=== PATIENT | male | born 1970 | race Caucasian/White ===

== ENCOUNTER → 2017-07-30 13:32 | Outpatient (REF) | payer MEDICARE, OTHER, SELFPAY ==
[2017-07-30 18:18] LABS: Amphetamine/Metha Screen,Urine Negative ng/mL (<1000); Barbiturates Screen,Urine Negative ng/mL (<200); Benzodiazepines Screen,Urine Negative ng/mL (200); Cannabinoid Screen,Urine Negative ng/mL (<50); Cocaine Screen,Urine Negative ng/g (<300); Methadone Screen,Urine Negative ng/mL (<300); Opiate Screen,Urine Negative ng/mL (<300); Phencyclidine Screen,Urine Negative ng/mL (<25)
== END ==
LOC: LAB 13:32
PROVIDERS: Visit Provider Physician Assistant
DX: Z79.899 Other long term (current) drug therapy (principal)
CPT/HCPCS: 80305

== ENCOUNTER → 2018-06-02 13:50 | Outpatient (CLI) | payer MEDICARE, OTHER, SELFPAY ==
[2018-06-02 14:22] LABS: Basophils % 0.8 % (0.1-2.0); Eosinophils # 0.1 K/mm3 (0.0-0.4); Eosinophils % 2.6 % (0.1-12.0); Hematocrit 41.9 % (42.0-52.0); Hemoglobin 14.5 g/dL (14.1-18.0); Lymphocytes # 2.2 K/mm3 (0.7-4.5); Lymphocytes % 44.3 % (10-50); Mean Corpuscular HGB Conc 34.5 g/dL (31.8-35.4); Mean Corpuscular Hemoglobin 30.8 pg (27.0-31.2); Mean Corpuscular Volume 89.3 fl (80-94); Mean Platelet Volume 7.2 fl (7.4-10.4); Monocytes # 0.3 K/mm3 (0.1-1.0); Monocytes % 5.7 % (1.7-9.3); Neutrophils # 2.3 K/mm3 (1.8-7.8); Neutrophils % 46.6 % (37.0-80.0); Platelet Count 256 K/mm3 (142-424); Red Blood Count 4.69 M/mm3 (4.60-6.20); Red Cell Distribution Width 14.1 % (11.5-17.5); White Blood Count 4.9 K/mm3 (4.8-10.8)
[2018-06-02 15:58] LABS: Alanine Aminotransferase 47 U/L (12-78); Albumin Level 3.5 gm/dL (3.4-5.0); Albumin/Globulin Ratio 1.3 (1.1-1.8); Anion Gap 12.9 mEq/L (5-15); Aspartate Amino Transferase 23 U/L (15-37); Bilirubin,Total 0.3 mg/dL (0.2-1.0); Blood Urea Nitrogen 13 mg/dL (7-18); Calcium 8.6 mg/dL (8.5-10.1); Carbon Dioxide 26 mmol/L (21.0-32.0); Chloride 106 mmol/L (98-107); Estimated Glomerular Filt Rate 72 ml/min (>60); GFR (African American) 87 ML/MIN (>60); Globulin 2.8 gm/dl (1.3-3.2); Glucose 119 mg/dL (74-106); Potassium 3.9 mmoL/L (3.5-5.1); Sodium 141 mmol/L (136-145); Total Protein,Serum 6.3 gm/dL (6.4-8.2); Triglycerides 263 mg/dL (30-200)
[2018-06-02 15:59] LABS: Alkaline Phosphatase 84 U/L (46-116); Chol/HDL Ratio 7.3 (1-3.5); Cholesterol 183 mg/dL (140-200); HDL Cholesterol 25 mg/dL (27-67); LDL Cholesterol 105 mg/dL (0-130); T4 (Thyroxine) 7.1 ug/dl (4.7-13.3); Thyroid Stimulating Hormone 5.59 uIU/ml (0.358-3.740); VLDL Cholesterol 53 mg/dL (0-40)
[2018-06-04 14:39] LABS: Vitamin D 25 Hydroxy 21.7 ng/mL (30.0-100.0)
== END ==
PROVIDERS: Visit Provider Nurse Practitioner Family
DX: E78.5 Hyperlipidemia, unspecified (principal); I10 Essential (primary) hypertension; F41.9 Anxiety disorder, unspecified
CPT/HCPCS: 80053; 80061; 82652; 84436; 84443; 85025

== ENCOUNTER → 2018-09-01 13:57 | Outpatient (CLI) | payer MEDICARE, OTHER, SELFPAY ==
[2018-09-01 16:20] LABS: Chol/HDL Ratio 6.8 (1-3.5); Cholesterol 162 mg/dL (140-200); HDL Cholesterol 24 mg/dL (27-67); LDL Cholesterol 90 mg/dL (0-130); Thyroid Stimulating Hormone 2.54 uIU/ml (0.358-3.740); Triglycerides 242 mg/dL (30-200); VLDL Cholesterol 48 mg/dL (0-40)
[2018-09-05 06:20] LABS: Thyroid Peroxidase Antibodies 18 IU/mL (0-34); Vitamin D 25 Hydroxy 45.9 ng/mL (30.0-100.0)
== END ==
PROVIDERS: Visit Provider Nurse Practitioner Family
DX: E78.5 Hyperlipidemia, unspecified (principal); E03.9 Hypothyroidism, unspecified; E55.9 Vitamin D deficiency, unspecified; R68.89 Other general symptoms and signs
CPT/HCPCS: 80061; 82652; 84439; 84443; 86376

== ENCOUNTER → 2019-05-19 13:42 | Outpatient (CLI) | payer MEDICARE, OTHER, SELFPAY ==
[2019-05-19 14:30] LABS: Chloride 97 mmol/L (98-107)
[2019-05-19 14:31] LABS: Potassium 3.3 mmoL/L (3.5-5.1); Sodium 140 mmol/L (136-145)
[2019-05-19 14:33] LABS: Alanine Aminotransferase 54 U/L (12-78); Albumin Level 4.1 g/dl (3.5-5.0); Albumin/Globulin Ratio 1.7 (1.1-1.8); Alkaline Phosphatase 85 U/L (38-126); Aspartate Amino Transferase 47 U/L (17-59); Bilirubin,Total 0.6 mg/dl (0.2-1.3); Blood Urea Nitrogen 15 mg/dl (9-20); Estimated Glomerular Filt Rate 65 ml/min (>60); GFR (African American) 78 ML/MIN (>60); Globulin 2.4 g/dL (1.3-3.2); Total Protein,Serum 6.5 g/dl (6.3-8.2)
[2019-05-19 14:34] LABS: Anion Gap 17.3 mEq/L (5-15); Carbon Dioxide 29 mmol/L (22.0-30.0); Chol/HDL Ratio 6.5 (1-3.5); Cholesterol 157 mg/dl (140-200); Glucose 200 mg/dl (74-100); HDL Cholesterol 24 mg/dl (40-60); Triglycerides 266 mg/dl (30-150); VLDL Cholesterol 53 mg/dL (0-40)
[2019-05-19 14:42] LABS: Basophils % 0.6 % (0.1-2.0); Eosinophils # 0.1 K/mm3 (0.0-0.4); Eosinophils % 2.3 % (0.1-12.0); Hematocrit 41.1 % (42.0-52.0); Hemoglobin 14.3 g/dL (14.1-18.0); Lymphocytes # 2.6 K/mm3 (0.7-4.5); Lymphocytes % 51.4 % (10-50); Mean Corpuscular HGB Conc 34.8 g/dL (31.8-35.4); Mean Corpuscular Volume 88.9 fl (80-94); Mean Platelet Volume 7.9 fl (7.4-10.4); Monocytes # 0.4 K/mm3 (0.1-1.0); Monocytes % 7.7 % (1.7-9.3); Neutrophils # 1.9 K/mm3 (1.8-7.8); Platelet Count 290 K/mm3 (142-424); Red Blood Count 4.63 M/mm3 (4.60-6.20); Red Cell Distribution Width 13.7 % (11.5-17.5)
[2019-05-19 14:46] LABS: Direct LDL Cholesterol 110.58 mg/dL (100-129)
[2019-05-19 14:52] LABS: MANUAL DIFFERENTIAL MANUAL DIFFERENTIAL (MANUAL DIFF); T4 (Thyroxine) 8.7 ug/dl (5.53-11.0)
[2019-05-19 15:05] LABS: Thyroid Stimulating Hormone 3.36 uIU/mL (0.465-4.68)
[2019-05-19 19:17] LABS: Eosinophils % 3 % (0-3); Lymphocytes % 57 % (10-50); Monocytes % 7 % (2-9); Neutrophils % 33 % (42-76); Platelet Estimate Normal; RBC Morphology Normal; Total Cells Counted 100
[2019-05-22 09:37] LABS: Vitamin D 25 Hydroxy 22.8 ng/mL (30.0-100.0)
== END ==
PROVIDERS: Visit Provider Nurse Practitioner Family
DX: I10 Essential (primary) hypertension (principal); E03.9 Hypothyroidism, unspecified; E55.9 Vitamin D deficiency, unspecified
CPT/HCPCS: 80053; 80061; 82652; 84436; 84443; 85007; 85025

== ENCOUNTER → 2020-06-24 10:24 | Outpatient (CLI) | payer MEDICARE, OTHER, SELFPAY ==
--- NOTE | 2020-06-24 10:26 | CA_ITS ---
APPROVED REPORT EXAM: Comprehensive 2D, Doppler, and color-flow Echocardiogram [employer] Com[employer] Clerk: Yue Sanders CRT Ht: 5 ft 11 in Wt: 238lbs BSA: 2.27 BP: 138/78 mmHg Indications: Murmur, Hyperlipidemia, Hypertension/HDD 2D Dimensions Aortic Root 2.51 cm LA Volume 34.70 mL LVOT 1.79 cm (M/F) 1.5-2.5 LA Volume Index 15.30 mL/m2 (M/F) 16-34 M-Mode Dimensions RVDd 2.58 cm (0.9-2.6) LA Diam 3.91 cm (1.9-4.0) LVDd 4.87 cm (3.5-5.7) Ao Diam 3.62 cm (2.0-3.7) LVDs 2.69 cm (3.5-5.7) IVSd 1.27 cm (0.6-1.1) PWd 0.95 cm (0.6-1.1) EF (Teich) 75.90% FS 44.80% EDV (Teich) 111.20 mL TAPSE 2.15 (<1.7) ESV (Teich) 26.80 mL LV Diastology E Decel Time 150.00 (160-240 msec) E/A Ratio 0.74 LAT E' 11.00 (<10 cm/sec) LAT A' 13.20 cm/s E/LAT E' Ratio 8.55 (>14) Aortic Valve LVOT Max 169.00 (70-110 cm/s) LVOT VTI 30.49 cm AoV Peak Toni. 233.00 (50-130 cm/s) AO Peak GR. 21.70 mmHg AO Mean GR. 9.20 (<5 mmHg) AO VTI 36.17 (18-25 cm) RICCI (VTI) 2.12 (2.5-4.5 cm2) Mitral Valve MV E Max Toni. 94.00 (40-130 cm/s) MV A Velocity 127.00 (40-130 cm/s) E/A Ratio 0.74 MV Decel. Time 150.00 (160-240 ms) MV PHT 44.00 ms Pulmonary Valve PV Peak Velocity 67.00 (50-150 cm/s) Tricuspid Valve TR P. Velocity 200.00 cm/s RAP Estimate 10.00 mmHg RVSP 25.90 mmHg Left Ventricle Technically difficult study because of the patient factors and poor acoustic windows. Left atrium is mildly enlarged, left ventricle is normal size, mild concentric left ventricular hypertrophy, hyperdynamic left ventricular systolic function, visually estimated ejection fraction over 65% with no regional wall motion abnormality, endocardial surfaces are poorly visualized. Doppler evidence of impaired LV relaxation seen, tissue Doppler is inconclusive. Right Ventricle Right atrium and right ventricle are normal size and contractility. Aortic Valve Aortic valve is minimally thickened and fibrosed, there is no aortic stenosis, there is increased velocities across the aortic valve which is likely secondary to increased cardiac output. Morphologically there is no aortic stenosis or aortic insufficiency. Mitral Valve Mitral valve is grossly normal, there is trace mitral regurgitation. Tricuspid Valve Tricuspid grossly normal, there is trace tricuspid regurgitation, tricuspid regurgitation jet velocity is inadequate for calculation of the right ventricular systolic pressure. Pulmonic Valve Pulmonic valve is poorly visualized. Great Vessels Aortic root is normal size. Pericardium No significant pericardial effusion noted. Conclusion 1. Technically difficult study because of the patient factors and poor acoustic windows. Normal left ventricular size, mild concentric left ventricular hypertrophy, hyperdynamic left ventricular systolic function, visually estimated ejection fraction of over 65% with no regional wall motion abnormality, Doppler evidence of increased cardiac output state seen. 2. Trace mitral and tricuspid regurgitation. 3. No significant pericardial effusion noted. Electronically signed by : Wai Ayala, 06/24/2020 14:35:18
== END ==
PROVIDERS: PCP Emergency Medicine; Visit Provider Nurse Practitioner Family
DX: R01.1 Cardiac murmur, unspecified (principal)
CPT/HCPCS: 93306

== ENCOUNTER 2020-09-29 15:54 | Inpatient (IN) | payer MEDICARE, OTHER, SELFPAY ==
[2020-09-29] VITALS (9 sets, daily range): BP systolic 113–169; BP diastolic 59–92; PULSE 97–131; RESP 18–24; TEMP 37.3–39.3; O2SAT 96–98; BMI 36.0; BMI 36.1; BMI 36.3
--- NOTE | 2020-09-29 16:47 | XR_ITS ---
PROCEDURE INFORMATION: Exam: XR Left Tibia and Fibula Exam date and time: 09/29/2020 4:47 PM Age: 50 years old Clinical indication: Patient HX: Wound on left lower leg x 2 days , swelling to lower leg, no trauma TECHNIQUE: Imaging protocol: XR Left tibia and fibula. Views: 2 views. COMPARISON: No relevant prior studies available. FINDINGS: Bones/joints: No acute fracture or dislocation. Normal bone mineralization. Soft tissues: Moderate generalized soft tissue swelling. IMPRESSION: Soft tissue swelling.
[2020-09-29 16:55] LABS: Basophils # 0.1 K/mm3 (0-0.2); Basophils % 0.6 % (0.1-2.0); Eosinophils # 0.2 K/mm3 (0.0-0.4); Eosinophils % 1.2 % (0.1-12.0); Hematocrit 41.8 % (42.0-52.0); Hemoglobin 15.2 g/dL (14.1-18.0); Lymphocytes # 3.6 K/mm3 (0.7-4.5); Lymphocytes % 27.6 % (10-50); Mean Corpuscular HGB Conc 36.3 g/dL (31.8-35.4); Mean Corpuscular Hemoglobin 31.6 pg (27.0-31.2); Mean Corpuscular Volume 86.9 fl (80-94); Mean Platelet Volume 7.6 fl (7.4-10.4); Monocytes % 7.9 % (1.7-9.3); Neutrophils # 8.3 K/mm3 (1.8-7.8); Neutrophils % 62.7 % (37.0-80.0); Platelet Count 278 K/mm3 (142-424); Red Blood Count 4.81 M/mm3 (4.60-6.20); Red Cell Distribution Width 13.9 % (11.5-17.5); White Blood Count 13.2 K/mm3 (4.8-10.8)
[2020-09-29 16:57] LABS: Coronavirus 19, PCR Not Detected (NotDetected); Influenza A, PCR Not Detected (NotDetected); Influenza B, PCR Not Detected (NotDetected)
[2020-09-29 17:01] LABS: Alanine Aminotransferase 57 U/L (12-78); Albumin Level 4.4 g/dl (3.5-5.0); Albumin/Globulin Ratio 1.4 (1.1-1.8); Alkaline Phosphatase 123 U/L (38-126); Anion Gap 15.3 mEq/L (5-15); Aspartate Amino Transferase 43 U/L (17-59); Bilirubin,Total 0.9 mg/dl (0.2-1.3); Blood Urea Nitrogen 12 mg/dl (9-20); Carbon Dioxide 28 mmol/L (22.0-30.0); Chloride 98 mmol/L (98-107); Creatinine Clearance Estimated 143 mL/min (50-200); Estimated Glomerular Filt Rate 79 ml/min (>60); GFR (African American) 96 ML/MIN (>60); Globulin 3.1 g/dL (1.3-3.2); Glucose 122 mg/dl (74-100); Potassium 3.3 mmoL/L (3.5-5.1); Sodium 138 mmol/L (136-145); Total Protein,Serum 7.5 g/dl (6.3-8.2)
--- NOTE | 2020-09-29 17:03 | HMH.EDSKAF ---
ED Disposition Clinical Impression: Cellulitis Qualifiers: Site of cellulitis: extremity Site of cellulitis of extremity: lower extremity Laterality: left Qualified Code(s): L03.116 - Cellulitis of left lower limb Sepsis Qualifiers: Sepsis type: sepsis due to unspecified organism Sepsis acute organ dysfunction status: without acute organ dysfunction Qualified Code(s): A41.9 - Sepsis, unspecified organism Disposition: Still a Patient Condition on Discharge: Good Instructions: DI for Skin Abscess Referrals: Jose Baptiste APRN [Primary Care Provider] - - Critical Care Critical Care Time: No Attestation: On 09/29/20, the high probability of a clinically significant, sudden or life threatening deterioration of the following system(s) required my full and direct attention, intervention and personal management. The time I documented below is in addition to time spent performing reported procedures but includes the following listed in this critical care notation. Medical Decision Making - Pablo Inquiry Pt receiving controlled substance: No Vital Signs: 09/29/20 16:00 09/29/20 16:41 09/29/20 17:01 Temperature 102.7 F H 102.7 F H Temperature Source Oral Oral Pulse Rate 119 H Pulse Rate [Left Brachial] 127 H 131 H Respiratory Rate 24 22 18 Blood Pressure 124/72 Blood Pressure [Left Arm] 136/76 152/85 H Blood Pressure Mean 89 Blood Pressure Mean [Left Arm] 96 107 Blood Pressure Source [Left Arm] Automatic Cuff Blood Pressure Position [Left Arm] Sitting Sitting 02 Sat by Pulse Oximetry 98 98 97 Oxygen Delivery Method Room Air Room Air - Lab Data Lab Results 09/29/20 16:36: WBC 13.2 H, RBC 4.81, Hgb 15.2, Hct 41.8 L, MCV 86.9, MCH 31.6 H, MCHC 36.3 H, RDW 13.9, Plt Count 278, MPV 7.6, Neut % (Auto) 62.7, Lymph % (Auto) 27.6, [place] % (Auto) 7.9, Eos % (Auto) 1.2, Baso % (Auto) 0.6, Neut # (Auto) 8.3 H, Lymph # (Auto) 3.6, [place] # (Auto) 1.0, Eos # (Auto) 0.2, Baso # (Auto) 0.1 09/29/20 16:36: Sodium 138, Potassium 3.3 L, Chloride 98, Carbon Dioxide 28, Anion Gap 15.3 H, BUN 12, Creatinine 1.00, Estimated Creat Clear 143, Estimated GFR 79, Est GFR ( Amer) 96, Glucose 122 H, Calcium 9.0, Total Bilirubin 0.9, AST 43, ALT 57, Alkaline Phosphatase 123, Total Protein 7.5, Albumin 4.4, Globulin 3.1, Albumin/Globulin Ratio 1.4 09/29/20 16:36: Lactate 1.9 09/29/20 16:36: Procalcitonin 0.083 09/29/20 16:36: Sodium 138, Potassium 3.5, Chloride 100, Carbon Dioxide 27, Anion Gap 14.5, BUN 13, Creatinine 1.00, Estimated Creat Clear 143, Estimated GFR 79, Est GFR ( Amer) 96, Glucose 119 H, Calcium 8.9, Total Bilirubin 1.0, AST 43, ALT 54, Alkaline Phosphatase 125, Total Protein 7.0, Albumin 4.4, Globulin 2.6, Albumin/Globulin Ratio 1.7 09/29/20 16:50: SARS-CoV-2 (PCR) Not detected, Influenza A Untype (PCR) Not detected, Influenza Type B (PCR) Not detected Result diagrams: 09/29/20 16:36 09/29/20 16:36 Orders (Tests/Meds): ED MEDICATIONS Generic Name Dose Route Start Last Admin Trade Name Freq PRN Reason Stop Dose Admin Sodium Chloride 1,000 mls @ 999 mls/hr 09/29/20 17:00 09/29/20 16:57 Sod Chlor 0.9% 1000ml Bag IV 09/29/20 18:00 999 mls/hr .Q1H1M VIKA Administration Sodium Chloride 1,000 mls @ 999 mls/hr 09/29/20 17:15 Sod Chlor 0.9% 1000ml Bag IV 09/29/20 18:15 .Q1H1M VKIA Cefepime HCl 2 gm/ Sodium 100 mls @ 200 mls/hr 09/29/20 17:15 Chloride IV 10/13/20 17:14 Q8H VIKA Protocol Vancomycin HCl 2,250 mg/ 250 mls @ 125 mls/hr 09/29/20 17:06 Sodium Chloride IV 09/29/20 19:05 ONCE ONE Protocol Discontinued Medications Generic Name Dose Route Start Last Admin Trade Name Jadyn PRN Reason Stop Dose Admin Ketorolac Tromethamine 30 mg 09/29/20 16:49 09/29/20 16:57 Ketorolac 30mg/Ml Vial IV 09/29/20 16:50 30 mg ONCE ONE Administration Ondansetron HCl 4 mg 09/29/20 16:48 09/29/20 16:58 Ondansetron 4mg/2ml Vial IV 09/29/20 16:4
[2020-09-29 17:09] LABS: Lactic Acid 1.9 mmol/L (0.7-2.1)
[2020-09-29 17:18] LABS: Alanine Aminotransferase 54 U/L (12-78); Albumin Level 4.4 g/dl (3.5-5.0); Albumin/Globulin Ratio 1.7 (1.1-1.8); Alkaline Phosphatase 125 U/L (38-126); Anion Gap 14.5 mEq/L (5-15); Aspartate Amino Transferase 43 U/L (17-59); Blood Urea Nitrogen 13 mg/dl (9-20); Calcium 8.9 mg/dl (8.4-10.2); Carbon Dioxide 27 mmol/L (22.0-30.0); Chloride 100 mmol/L (98-107); Creatinine Clearance Estimated 143 mL/min (50-200); Estimated Glomerular Filt Rate 79 ml/min (>60); GFR (African American) 96 ML/MIN (>60); Globulin 2.6 g/dL (1.3-3.2); Glucose 119 mg/dl (74-100); Potassium 3.5 mmoL/L (3.5-5.1); Procalcitonin 0.083 ng/mL (0.0-2.0); Sodium 138 mmol/L (136-145)
--- NOTE | 2020-09-29 17:30 | PC.NURSE ---
pt updated on plan of care
--- NOTE | 2020-09-29 17:50 | PC.NURSE ---
Dr Durbin talking to Dr Hudson
--- NOTE | 2020-09-29 17:55 | PC.NURSE ---
pharmacy consult for lorna.dosing
--- NOTE | 2020-09-29 18:10 | PC.NURSE ---
report to audrey daniel
--- NOTE | 2020-09-29 18:52 | PC.NURSE ---
Pt arrived to the floor at this time.
--- NOTE | 2020-09-29 18:54 | PC.NURSE ---
vancomycin drip sent to floor with pt
--- NOTE | 2020-09-29 19:12 | PC.WOUNDNOTE ---
Anterior LT dye
[2020-09-30 04:00] VITALS: BP 96/50; PULSE 89; RESP 18; TEMP 37.2; O2SAT 99
--- NOTE | 2020-09-30 04:10 | PC.NURSE ---
shift summary pt is alert and oriented X4. pts lung sounds are clear with sats maintained 90% or above on room air. there is a dressing on the pts left lower extremity cdi. pt denies any pain, nausea, vomiting, or diarrhea. pt is able to ambulate to restroom unassisted no acute changes will continue to monitor.
[2020-09-30 05:28] VITALS: BMI 36.1
--- NOTE | 2020-09-30 07:15 | HMH.PHAVTE ---
[facility] Pharmacy VTE Monitoring - Patient Demographics Admission date: 09/29/20 Report Date: 09/30/20 Time: 07:15 Allergies/Adverse Reactions: Patient Allergies No Known Allergies Allergy (Verified 06/14/20 11:01) Height: 1.78 m Weight: 114.305 kg Patient Problems: Current Active Problems Cellulitis (Acute) Sepsis (Acute) - VTE Risk Labs: VTE Related Lab Results Hgb 15.2 g/dL (14.1-18.0) 09/29/20 16:36 Hct 41.8 % (42.0-52.0) L 09/29/20 16:36 Plt Count 278 K/mm3 (142-424) 09/29/20 16:36 BUN 12 mg/dl (9-20) 09/29/20 16:36 BUN 13 mg/dl (9-20) 09/29/20 16:36 Creatinine 1.00 mg/dl (0.66-1.25) 09/29/20 16:36 Creatinine 1.00 mg/dl (0.66-1.25) 09/29/20 16:36 Estimated Creat Clear 143 mL/min (50-200) 09/29/20 16:36 Estimated Creat Clear 143 mL/min (50-200) 09/29/20 16:36 Clinical Trial Participant: No - Prophylaxis VTE Prophylaxis Ordered?: Yes Types of VTE Prophylaxis: TEDS Knee High, Pharmacological Pharmacologic Type: Enoxaparin
--- NOTE | 2020-09-30 07:18 | HMH.PHAINT ---
HOME MEDICATION LIST COMPLETED USING LIST FROM [facility]
[2020-09-30 07:39] VITALS: BP 131/71; PULSE 89; RESP 17; TEMP 37.2; O2SAT 98
--- NOTE | 2020-09-30 08:07 | HMH.PHACONS ---
- Pharmacy Consult Date: 09/30/20 Time: 08:07 Referring provider: DR. ZHAO Reason for Consult:: VANCOMYCIN DOSING Allergies and ADEs:: Allergies Allergy/AdvReac Type Severity Reaction Status Date / Time No Known Allergies Allergy Verified 06/14/20 11:01 Home Medications:: Home Medications Medication Instructions Recorded Confirmed Type Atorvastatin Calcium [Lipitor 40mg 40 mg PO DAILY 09/29/20 09/29/20 History Tab] Levothyroxine Sodium 25 mcg PO DAILY 09/29/20 09/29/20 History [Levothyroxine] Triamterene/Hydrochlorothiazid 1 tab PO DAILY 09/29/20 09/29/20 History [Triamterene-Hctz 75-50 mg Tab] Fenofibrate Nanocrystallized 145 mg PO DAILY 09/30/20 09/30/20 History [Fenofibrate] Height: 1.78 m Weight: 114.305 kg Laboratory Results:: Laboratory Results - last 24 hr 09/29/20 16:36: WBC 13.2 H, RBC 4.81, Hgb 15.2, Hct 41.8 L, MCV 86.9, MCH 31.6 H, MCHC 36.3 H, RDW 13.9, Plt Count 278, MPV 7.6, Neut % (Auto) 62.7, Lymph % (Auto) 27.6, [place] % (Auto) 7.9, Eos % (Auto) 1.2, Baso % (Auto) 0.6, Neut # (Auto) 8.3 H, Lymph # (Auto) 3.6, [place] # (Auto) 1.0, Eos # (Auto) 0.2, Baso # (Auto) 0.1 09/29/20 16:36: Sodium 138, Potassium 3.3 L, Chloride 98, Carbon Dioxide 28, Anion Gap 15.3 H, BUN 12, Creatinine 1.00, Estimated Creat Clear 143, Estimated GFR 79, Est GFR ( Amer) 96, Glucose 122 H, Calcium 9.0, Total Bilirubin 0.9, AST 43, ALT 57, Alkaline Phosphatase 123, Total Protein 7.5, Albumin 4.4, Globulin 3.1, Albumin/Globulin Ratio 1.4 09/29/20 16:36: Lactate 1.9 09/29/20 16:36: Procalcitonin 0.083 09/29/20 16:36: Sodium 138, Potassium 3.5, Chloride 100, Carbon Dioxide 27, Anion Gap 14.5, BUN 13, Creatinine 1.00, Estimated Creat Clear 143, Estimated GFR 79, Est GFR ( Amer) 96, Glucose 119 H, Calcium 8.9, Total Bilirubin 1.0, AST 43, ALT 54, Alkaline Phosphatase 125, Total Protein 7.0, Albumin 4.4, Globulin 2.6, Albumin/Globulin Ratio 1.7 09/29/20 16:50: SARS-CoV-2 (PCR) Not detected, Influenza A Untype (PCR) Not detected, Influenza Type B (PCR) Not detected Medical History: Reports:: Anxiety, Heart Murmur, Hyperlipidemia, Hypertension Denies:: Cancer, Diabetes Mellitus Type 1, Diabetes Mellitus Type 2, MRSA Assessment and Plan - Assessment and plan all Dx Assessment and Plan for all problems:: Pharmacokinetic dosing service Objective: Patient: Floor: Age: 50 yo Serum creatinine: 1.00 mg/dL Height: 70.1 Inches Weight (kg): 114 Assessment: IBW (kg): 73.23 Dosing wt(kg): 114 Estimated Creatinine clearance (ml/min): 91.5 CRCL method: Cockcroft and Gault using ibw(default). Drug selected: Vancomycin Loading dose (mg): 0 Vd (liters): 91.2 (factor used: 0.8 L/kg) [place] (hr-1): 0.080 Half life (hrs): 8.66 Recommended dose: 2250 mg Interval: 12 hrs Infusion time (hrs): 2.0 Predicted peak (mcg/mL): 36.9 Predicted trough (mcg/mL): 16.58 Total body weight is being used for vancomycin dosing. Recommendations: Give Vancomycin 2250 mg q 12 hrs with an expected Cpeak of 36.9 mcg/ml and an expected Ctrough of 16.58 mcg/ml Thank you for the consult, will continue to follow. ONEIDA BAED
--- NOTE | 2020-09-30 08:50 | HMH.HP ---
*Admission Date: 09/29/20 *Chief complaint: cellulitis *History of present illness: 50 yr old male presented to ed with c/o of leg swollen and red. Patient states he noticed that his jeans were tight on his lower extremity approximately 2 days ago and then noticed the ulcer to the anterior medial leg had some drainage, erythema and 2+ edema came to the emergency room to be evaluated. Patient denies any fever, nausea, vomiting, diarrhea,or shortness of breath. Pt has a hx of immune deff and takes sq igg therapy, pt states he was dx as a child and since then has not had any infections. Pt admitted due to hx for pod consult and iv antibiotics. [facility] History I have reviewed the patient's past medical history: Yes Medical History: Reports:: Anxiety, Heart Murmur, Hyperlipidemia, Hypertension Denies:: Cancer, Diabetes Mellitus Type 1, Diabetes Mellitus Type 2, MRSA *Have you ever received a pneumonia vaccine?: Yes *Have you received a flu vaccine this season?: Yes Other Medical History: Reports: Hypothyroidism Other Surgeries: Yes: No Previous Surgery Amputation: No Fractures: No - *Social History Last grade of school completed: Some college Smoking Status: Never smoker Alcohol Intake: never Substance Use Type: denies use *Occupational Status:: employed *Travel in the last 8 weeks: None - Psychiatric History Pschychiatric History:: Reports:: Anxiety Family Hx:: Unable to obtain Review of Systems - Review of Systems Review of systems:: pertinent systems reviewed and negative unless documented below - Constitutional Denies daytime sleepiness - Eyes Denies change in vision - ENT Denies change in voice - *Cardiovascular Denies chest pain with activity - *Respiratory Denies cough - *Gastrointestinal Denies change in bowel habits - *Genitourinary Denies painful urination - *Musculoskeletal Denies back pain - Integumentary/Breasts Reports redness, Reports skin ulcer, Reports sores, Denies nail changes - *Neurologic Denies abnormal movements - Psychiatric Denies hearing things others do not hear - Endocrine Denies heat intolerance - Hematologic/Lymphatic Denies enlarged lymph nodes - Allergic/Immunologic Denies lip swelling Meds Home Medications Medication Instructions Recorded Confirmed Type Atorvastatin Calcium [Lipitor 40mg 40 mg PO DAILY 09/29/20 09/29/20 History Tab] Levothyroxine Sodium 25 mcg PO DAILY 09/29/20 09/29/20 History [Levothyroxine] Triamterene/Hydrochlorothiazid 1 tab PO DAILY 09/29/20 09/29/20 History [Triamterene-Hctz 75-50 mg Tab] Fenofibrate Nanocrystallized 145 mg PO DAILY 09/30/20 09/30/20 History [Fenofibrate] Allergies Allergy/AdvReac Type Severity Reaction Status Date / Time No Known Allergies Allergy Verified 06/14/20 11:01 Exam Vital signs and Labs for Last 24 Hours: Temp Pulse Resp BP Pulse Ox 99.0 F 89 17 131/71 98 09/30/20 07:39 09/30/20 07:39 09/30/20 07:39 09/30/20 07:39 09/30/20 07:39 Laboratory Results - last 24 hr 09/29/20 16:36: WBC 13.2 H, RBC 4.81, Hgb 15.2, Hct 41.8 L, MCV 86.9, MCH 31.6 H, MCHC 36.3 H, RDW 13.9, Plt Count 278, MPV 7.6, Neut % (Auto) 62.7, Lymph % (Auto) 27.6, [place] % (Auto) 7.9, Eos % (Auto) 1.2, Baso % (Auto) 0.6, Neut # (Auto) 8.3 H, Lymph # (Auto) 3.6, [place] # (Auto) 1.0, Eos # (Auto) 0.2, Baso # (Auto) 0.1 09/29/20 16:36: Sodium 138, Potassium 3.3 L, Chloride 98, Carbon Dioxide 28, Anion Gap 15.3 H, BUN 12, Creatinine 1.00, Estimated Creat Clear 143, Estimated GFR 79, Est GFR ( Amer) 96, Glucose 122 H, Calcium 9.0, Total Bilirubin 0.9, AST 43, ALT 57, Alkaline Phosphatase 123, Total Protein 7.5, Albumin 4.4, Globulin 3.1, Albumin/Globulin Ratio 1.4 09/29/20 16:36: Lactate 1.9 09/29/20 16:36: Procalcitonin 0.083 09/29/20 16:36: Sodium 138, Potassium 3.5, Chloride 100, Carbon Dioxide 27, Anion Gap 14.5, BUN 13, Creatinine 1.00, Estimated Creat Clear 143, Estimated GFR 79, Est GFR
[2020-09-30 09:13] LABS: Basophils % 0.4 % (0.1-2.0); Eosinophils # 0.1 K/mm3 (0.0-0.4); Eosinophils % 1.5 % (0.1-12.0); Hematocrit 36.1 % (42.0-52.0); Lymphocytes # 1.8 K/mm3 (0.7-4.5); Mean Corpuscular HGB Conc 35.4 g/dL (31.8-35.4); Mean Corpuscular Hemoglobin 31.5 pg (27.0-31.2); Mean Corpuscular Volume 89.1 fl (80-94); Mean Platelet Volume 7.1 fl (7.4-10.4); Monocytes # 0.6 K/mm3 (0.1-1.0); Monocytes % 6.8 % (1.7-9.3); Neutrophils # 6.6 K/mm3 (1.8-7.8); Neutrophils % 71.3 % (37.0-80.0); Platelet Count 207 K/mm3 (142-424); Red Blood Count 4.05 M/mm3 (4.60-6.20); Red Cell Distribution Width 14.1 % (11.5-17.5); White Blood Count 9.2 K/mm3 (4.8-10.8)
--- NOTE | 2020-09-30 09:18 | CA_ITS ---
APPROVED REPORT Left Lower Extremity Venous Study for DVT. Variety Lathe Operator: CT Indications Lower Extremity Pain: Left Lower Extremity Edema: Left swelling-positive homans Vein Imaging EIV (L): Not Visualized CFV (L): compressive, spontaneous, phasic, augmentation SFJ (L): compressive, spontaneous, phasic, augmentation FEM (L): compressive, spontaneous, phasic, augmentation POP (L): compressive, spontaneous, phasic, augmentation DFV (L): compressive, spontaneous, phasic, augmentation PTV (L): compressive, spontaneous, phasic, augmentation GSV (L): compressive, spontaneous, phasic, augmentation SSV (L): Not Visualized Peroneals (L):Not Visualized GAS (L): compressive, spontaneous, phasic, augmentation Findings LLE negative for DVT/SVT. No reflux noted. Small portion of PT scanned due to bandage Peroneal not visualized due to bandage. Enlarged Lymph node noted in the groin. Conclusion LLE negative for DVT/SVT. No reflux noted. Small portion of PT scanned due to bandage Peroneal not visualized due to bandage. Enlarged Lymph node noted in the groin. Electronically signed by : Yamil Gustafson MD 09/30/2020 11:19:49
[2020-09-30 09:20] LABS: Chloride 100 mmol/L (98-107); Potassium 3.6 mmoL/L (3.5-5.1); Sodium 137 mmol/L (136-145)
[2020-09-30 09:23] LABS: Anion Gap 10.6 mEq/L (5-15); Blood Urea Nitrogen 13 mg/dl (9-20); Carbon Dioxide 30 mmol/L (22.0-30.0); Creatinine Clearance Estimated 130 mL/min (50-200); Estimated Glomerular Filt Rate 71 ml/min (>60); GFR (African American) 86 ML/MIN (>60)
[2020-09-30 09:24] LABS: Calcium 8.2 mg/dl (8.4-10.2); Glucose 219 mg/dl (74-100)
[2020-09-30 09:33] LABS: Hemoglobin 12.8 g/dL (14.1-18.0)
--- NOTE | 2020-09-30 09:52 | HMH.ORTHOCON ---
*Admission Date: 09/29/20 <Lizzie Parrish - 09/30/20 09:57> *Reason for consult:: Cellulitis to left lower leg <Lizzie Parrish 09/30/20 09:57> *History of present illness: Medical History: Reports:: Anxiety, Heart Murmur, Hyperlipidemia, Hypertension Denies:: Cancer, Diabetes Mellitus Type 1, Diabetes Mellitus Type 2, MRSA *Have you ever received a pneumonia vaccine?: Yes *Have you received a flu vaccine this season?: Yes Other Medical History: Reports: Hypothyroidism Other Surgeries: Yes: No Previous Surgery Amputation: No Fractures: No - *Social History Last grade of school completed: Some college Smoking Status: Never smoker Alcohol Intake: never Substance Use Type: denies use *Occupational Status:: employed *Travel in the last 8 weeks: None - Psychiatric History Pschychiatric History:: Reports:: Anxiety Family Hx:: Unable to obtain3 09/30/2020 podiatry consult for cellulitis to left lower leg. Patient states he noticed that his jeans were tight on his lower extremity approximately 2 days ago and then noticed the ulcer to the anterior medial leg had some drainage, erythema and 2+ edema came to the emergency room to be evaluated. Patient denies any fever, nausea, vomiting, diarrhea,or shortness of breath. Patient was concerned that it is a DVT in lower extremity. Patient did have a negative Homans' sign upon assessment this morning there is 2+ edema sanguinous drainage coming from the ulcer to anterior medial leg that was cultured at bedside. Patient is scheduled to go down for a Doppler to rule out DVT to lower extremity. The site was cleaned with normal saline and just sterile gauze and Kerlix to cover for his transport down to radiology for the procedure. Patient will need a new clean dressing upon his return back to his room per nursing. <Lizzie Parrish 09/30/20 09:57> [facility] History I have reviewed the patient's past medical history: Yes <Lizzie Parrish 09/30/20 11:44> Medical History: Reports:: Anxiety, Heart Murmur, Hyperlipidemia, Hypertension Denies:: Cancer, Diabetes Mellitus Type 1, Diabetes Mellitus Type 2, MRSA <Lizzie Parrish 09/30/20 09:57> *Have you ever received a pneumonia vaccine?: Yes <ShivaniLizzie Edilberto 09/30/20 09:57> *Have you received a flu vaccine this season?: Yes <Lizzie Parrish 09/30/20 09:57> Other Medical History: Reports: Hypothyroidism <Lizzie Parrish 09/30/20 09:57> Other Surgeries: Yes: No Previous Surgery <Lizzie Parrish 09/30/20 09:57> Amputation: No <Lizzie Parrish 09/30/20 09:57> Fractures: No <Lizzie Parrish 09/30/20 09:57> - *Social History Last grade of school completed: Some college <Lizzie Parrish 09/30/20 09:57> Smoking Status: Never smoker <Lizzie Parrish 09/30/20 09:57> Alcohol Intake: never <Lizzie Parrish 09/30/20 09:57> Substance Use Type: denies use <Lizzie Parrish 09/30/20 09:57> *Occupational Status:: employed <Lizzie Parrish 09/30/20 09:57> *Travel in the last 8 weeks: None <Lizzie Parrish 09/30/20 09:57> - Psychiatric History Pschychiatric History:: Reports:: Anxiety <Lizzie Parrish 09/30/20 09:57> Family Hx:: Unable to obtain <Lizzie Parrish 09/30/20 09:57> Review of Systems - Constitutional Denies fever(s) <Lizzie Parrish 09/30/20 11:44> - *Cardiovascular Reports leg swelling (Left lower leg 2+ edema/ cellulitis), Denies chest pain, Denies leg pain with activity, Denies shortness of breath <Lizzie Parrish 09/30/20 11:44> - *Respiratory Denies cough, Denies shortness of breath <Lizzie Parrish 09/30/20 11:44> - *Gastrointestinal Denies abdominal pain <Lizzie Parrish 09/30/20 11:44> - *Genitourinary Denies difficulty urinating <Lizzie Parrish 09/30/20 11:44> - *Musculoskeletal Reports other (Pain in LLE due to cellulits and ulcers to leg. ), Denies abnormal walking <Lizzie Parrish 09/30/20 11:44> - Integumentary/Breasts Reports redn
--- NOTE | 2020-09-30 09:55 | CT_ITS ---
PROCEDURE: CT LOWER LEG LT WO CON CLINICAL HISTORY: cellulitits, r/o abcess Pain redness and swelling in the left lower extremity COMPARISON: No exams were available for comparison TECHNIQUE: Axial images obtained with sagittal and coronal reformats. All CT scans at the facility use one or more dose reduction, viz: automated exposure control, ma/kV adjustment per patient size (including targeted exams where dose is matched to indication, i.e. head), or iterative reconstruction technique. FINDINGS: Abscess evaluation limited without IV contrast. There is diffuse stranding of the subcutaneous fat throughout the left lower extremity and proximal foot with scattered areas of fluid density in the upper pretibial region, left aspect of the knee anteriorly, anterior aspect of foot, and dorsal proximal calf consistent with edema. No localized fluid collection evident that would indicate an abscess however, small abscess may not be visualized without IV contrast. No evidence of osteomyelitis. No soft tissue gas apparent. IMPRESSION: No obvious abscess. Diffuse stranding of the subcutaneous fat with nonlocalized subcutaneous fluid consistent with cellulitis Dictated by: Yamil Gustafson MD 09/30/2020 11:39 Yamil Gustafson MD in [place] 09/30/2020 11:39
[2020-09-30 10:09] LABS: Hemoglobin A1C 6.9 % (4.0-6.0)
[2020-09-30 10:19] LABS: Erythrocyte Sedimentation Rate 30 mm/hr (0-15)
--- NOTE | 2020-09-30 14:33 | PC.NURSE ---
HE IS AOX4, ABLE TO MAKE NEEDS KNOWN TO STAFF, PT HAS TOLERATED DIET WELL, DENIES N/V/D. ABD IS SOFT AND NON-TENDER WITH ACTIVE BOWEL SOUNDS X4, LUNGS CTA TOLERATING RA, PT LLE APPEARS RED WITH INFLAMMATION PRESENT. LARGE OPEN AREA TO LLE. PT TOLERATES AMBULATION WELL, NO NEEDS VOICED. VSS T/O SHIFT.
[2020-09-30 15:32] VITALS: BP 134/58; PULSE 91; RESP 16; TEMP 37.1; O2SAT 97
[2020-09-30 16:31] VITALS: BMI 35.9
[2020-09-30 20:00] VITALS: BP 142/70; PULSE 89; RESP 18; TEMP 37.6; O2SAT 99
[2020-10-01 04:00] VITALS: BP 137/74; PULSE 76; RESP 18; TEMP 36.6; O2SAT 97
--- NOTE | 2020-10-01 04:19 | PC.NURSE ---
shift summary pt is alert and oriented X4. pts lung sounds are clear with sats maintained 90% or above on room air. there is a dressing on the pts left lower extremity cdi. pt denies any pain, nausea, vomiting, or diarrhea. pt is able to ambulate to restroom unassisted. pt states his leg feels much better and is easier to ambulat now. no acute changes will continue to monitor.
[2020-10-01 05:00] VITALS: BMI 36.1
[2020-10-01 07:02] LABS: Basophils % 0.5 % (0.1-2.0); Eosinophils # 0.1 K/mm3 (0.0-0.4); Eosinophils % 1.6 % (0.1-12.0); Hematocrit 36.7 % (42.0-52.0); Hemoglobin 12.8 g/dL (14.1-18.0); Lymphocytes # 2.3 K/mm3 (0.7-4.5); Lymphocytes % 27.3 % (10-50); Mean Corpuscular Volume 88.5 fl (80-94); Mean Platelet Volume 7.9 fl (7.4-10.4); Monocytes # 0.7 K/mm3 (0.1-1.0); Neutrophils # 5.2 K/mm3 (1.8-7.8); Neutrophils % 62.6 % (37.0-80.0); Platelet Count 209 K/mm3 (142-424); Red Blood Count 4.14 M/mm3 (4.60-6.20); Red Cell Distribution Width 14.2 % (11.5-17.5); White Blood Count 8.4 K/mm3 (4.8-10.8)
[2020-10-01 07:10] LABS: Anion Gap 7.5 mEq/L (5-15); Blood Urea Nitrogen 11 mg/dl (9-20); Calcium 8.4 mg/dl (8.4-10.2); Carbon Dioxide 33 mmol/L (22.0-30.0); Chloride 98 mmol/L (98-107); Creatinine Clearance Estimated 130 mL/min (50-200); Estimated Glomerular Filt Rate 71 ml/min (>60); GFR (African American) 86 ML/MIN (>60); Glucose 149 mg/dl (74-100); Potassium 3.5 mmoL/L (3.5-5.1); Sodium 135 mmol/L (136-145)
[2020-10-01 07:23] VITALS: BP 122/71; PULSE 87; RESP 18; TEMP 37.9; O2SAT 96
[2020-10-01 08:53] LABS: Vancomycin,Trough 9.5 ug/mL (5.0-10.0)
--- NOTE | 2020-10-01 08:56 | HMH.PHACONS ---
- Pharmacy Consult Date: 10/01/20 Time: 08:56 Referring provider: DR. BRADLEY Reason for Consult:: VANCOMYCIN LEVEL AND DOSE CHANGE Allergies and ADEs:: Allergies Allergy/AdvReac Type Severity Reaction Status Date / Time No Known Allergies Allergy Verified 06/14/20 11:01 Home Medications:: Home Medications Medication Instructions Recorded Confirmed Type Atorvastatin Calcium [Lipitor 40mg 40 mg PO DAILY 09/29/20 09/29/20 History Tab] Levothyroxine Sodium 25 mcg PO DAILY 09/29/20 09/29/20 History [Levothyroxine] Triamterene/Hydrochlorothiazid 1 tab PO DAILY 09/29/20 09/29/20 History [Triamterene-Hctz 75-50 mg Tab] Fenofibrate Nanocrystallized 145 mg PO DAILY 09/30/20 09/30/20 History [Fenofibrate] Height: 1.78 m Weight: 114.305 kg Laboratory Results:: Laboratory Results - last 24 hr 09/30/20 08:58: WBC 9.2 D, RBC 4.05 L, Hgb 12.8 L D, Hct 36.1 L, MCV 89.1, MCH 31.5 H, MCHC 35.4, RDW 14.1, Plt Count 207 D, MPV 7.1 L, Neut % (Auto) 71.3, Lymph % (Auto) 20.0, Mcclain % (Auto) 6.8, Eos % (Auto) 1.5, Baso % (Auto) 0.4, Neut # (Auto) 6.6, Lymph # (Auto) 1.8, Mcclain # (Auto) 0.6, Eos # (Auto) 0.1, Baso # (Auto) 0.0 09/30/20 08:58: Sodium 137, Potassium 3.6, Chloride 100, Carbon Dioxide 30, Anion Gap 10.6, BUN 13, Creatinine 1.10, Estimated Creat Clear 130, Estimated GFR 71, Est GFR ( Amer) 86, Glucose 219 H D, Calcium 8.2 L 09/30/20 08:58: ESR 30 H 09/30/20 08:58: Hemoglobin A1c 6.9 H 09/30/20 08:58: C-Reactive Protein 110.0 H 10/01/20 06:11: WBC 8.4, RBC 4.14 L, Hgb 12.8 L, Hct 36.7 L, MCV 88.5, MCH 31.0, MCHC 35.0, RDW 14.2, Plt Count 209, MPV 7.9, Neut % (Auto) 62.6, Lymph % (Auto) 27.3, Mcclain % (Auto) 8.0, Eos % (Auto) 1.6, Baso % (Auto) 0.5, Neut # (Auto) 5.2, Lymph # (Auto) 2.3, Mcclain # (Auto) 0.7, Eos # (Auto) 0.1, Baso # (Auto) 0.0 10/01/20 06:11: Sodium 135 L, Potassium 3.5, Chloride 98, Carbon Dioxide 33 H, Anion Gap 7.5, BUN 11, Creatinine 1.10, Estimated Creat Clear 130, Estimated GFR 71, Est GFR ( Amer) 86, Glucose 149 H D, Calcium 8.4 10/01/20 08:08: Vancomycin Trough 9.5 Medical History: Reports:: Anxiety, Heart Murmur, Hyperlipidemia, Hypertension Denies:: Cancer, Diabetes Mellitus Type 1, Diabetes Mellitus Type 2, MRSA Assessment and Plan (1) SIRS (systemic inflammatory response syndrome) Status: Acute Category: Medical Code(s): R65.10 - Systemic inflammatory response syndrome (SIRS) of non-infectious origin without acute organ dysfunction (2) Cellulitis Status: Acute Qualifiers: Site of cellulitis: extremity Site of cellulitis of extremity: lower extremity Laterality: left Qualified Code(s): L03.116 - Cellulitis of left lower limb Category: Medical Code(s): L03.90 - Cellulitis, unspecified (3) Edema of left lower extremity Start date: 09/30/20 Status: Acute Category: Medical Code(s): R60.0 - Localized edema (4) Ulcer of left lower leg Status: Acute Qualifiers: Non-pressure ulcer stage: limited to breakdown of skin Qualified Code(s): L97.921 - Non-pressure chronic ulcer of unspecified part of left lower leg limited to breakdown of skin Category: Medical Code(s): L97.929 - Non-pressure chronic ulcer of unspecified part of left lower leg with unspecified severity (5) Ulcer of left medial lower extremity Start date: 09/30/20 Status: Acute Qualifiers: Non-pressure ulcer stage: limited to breakdown of skin Qualified Code(s): L97.821 - Non-pressure chronic ulcer of other part of left lower leg limited to breakdown of skin Category: Medical Code(s): L97.829 - Non-pressure chronic ulcer of other part of left lower leg with unspecified severity (6) Immunodeficiency Status: Chronic Category: Medical Code(s): D84.9 - Immunodeficiency, unspecified (7) Left leg cellulitis Status: Acute Category: Medical Code(s): L03.116 - Cellulitis of left lower limb (8) Diabetes Status: Acute Category: Medical Co
--- NOTE | 2020-10-01 09:10 | HMH.ACPN2 ---
Internal Medicine - PN: Subj *Date: 10/02/20 *Time: 07:39 Interval history: doing better - awaiting culture results Exam Vital signs and Labs for Last 24 Hours: Temp Pulse Resp BP Pulse Ox 100.2 F H 87 18 122/71 96 10/01/20 07:23 10/01/20 07:23 10/01/20 07:23 10/01/20 07:23 10/01/20 07:23 Laboratory Results - last 24 hr 09/30/20 08:58: WBC 9.2 D, RBC 4.05 L, Hgb 12.8 L D, Hct 36.1 L, MCV 89.1, MCH 31.5 H, MCHC 35.4, RDW 14.1, Plt Count 207 D, MPV 7.1 L, Neut % (Auto) 71.3, Lymph % (Auto) 20.0, Hawkins % (Auto) 6.8, Eos % (Auto) 1.5, Baso % (Auto) 0.4, Neut # (Auto) 6.6, Lymph # (Auto) 1.8, Hawkins # (Auto) 0.6, Eos # (Auto) 0.1, Baso # (Auto) 0.0 09/30/20 08:58: Sodium 137, Potassium 3.6, Chloride 100, Carbon Dioxide 30, Anion Gap 10.6, BUN 13, Creatinine 1.10, Estimated Creat Clear 130, Estimated GFR 71, Est GFR ( Amer) 86, Glucose 219 H D, Calcium 8.2 L 09/30/20 08:58: ESR 30 H 09/30/20 08:58: Hemoglobin A1c 6.9 H 09/30/20 08:58: C-Reactive Protein 110.0 H 10/01/20 06:11: WBC 8.4, RBC 4.14 L, Hgb 12.8 L, Hct 36.7 L, MCV 88.5, MCH 31.0, MCHC 35.0, RDW 14.2, Plt Count 209, MPV 7.9, Neut % (Auto) 62.6, Lymph % (Auto) 27.3, Hawkins % (Auto) 8.0, Eos % (Auto) 1.6, Baso % (Auto) 0.5, Neut # (Auto) 5.2, Lymph # (Auto) 2.3, Hawkins # (Auto) 0.7, Eos # (Auto) 0.1, Baso # (Auto) 0.0 10/01/20 06:11: Sodium 135 L, Potassium 3.5, Chloride 98, Carbon Dioxide 33 H, Anion Gap 7.5, BUN 11, Creatinine 1.10, Estimated Creat Clear 130, Estimated GFR 71, Est GFR ( Amer) 86, Glucose 149 H D, Calcium 8.4 10/01/20 08:08: Vancomycin Trough 9.5 I & O for Last 24 hours: Intake & Output 09/28/20 09/29/20 09/30/20 10/01/20 11:59 11:59 11:59 11:59 Intake Total 360 / 360 2019 Balance 360 / 360 2019 Weight 252 lb 252 lb Microbiology Reports for the Last 24 Hours: Microbiology 09/30/20 Unknown Leg,Left - Drainage Gram Stain - Final 09/30/20 Unknown Leg,Left - Drainage Wound Culture - Preliminary Gram Positive Cocci - Constitutional no acute distress, obese - *Routine HEENT Exam Head: Present: normocephalic Eye: Present: EOMI, PERRL ENT: Present: mucous membranes dry - *Routine Neck Exam Present: supple - *Routine Respiratory Exam Present: CTA bilaterally - *Routine Cardiovascular Exam Present: RRR, murmur - *Routine Abdominal Exam Present: soft - *Routine Extremities Exam Present: edema, pulses intact, calf tenderness, tenderness Comments: open area and tenderness lt ant lower ext - *Routine Skin Exam Present: warm Comments: tenderness lt lower ext with open wd - - *Routine Neurological Exam Present: alert, CN II-XII intact. Absent: motor deficit - Routine Psychiatric Exam Present: normal affect Assessment and Plan (1) SIRS (systemic inflammatory response syndrome) Status: Acute Category: Medical Code(s): R65.10 - Systemic inflammatory response syndrome (SIRS) of non-infectious origin without acute organ dysfunction (2) Cellulitis Status: Acute Qualifiers: Site of cellulitis: extremity Site of cellulitis of extremity: lower extremity Laterality: left Qualified Code(s): L03.116 - Cellulitis of left lower limb Category: Medical Code(s): L03.90 - Cellulitis, unspecified (3) Edema of left lower extremity Start date: 09/30/20 Status: Acute Category: Medical Code(s): R60.0 - Localized edema (4) Ulcer of left lower leg Status: Acute Qualifiers: Non-pressure ulcer stage: limited to breakdown of skin Qualified Code(s): L97.921 - Non-pressure chronic ulcer of unspecified part of left lower leg limited to breakdown of skin Category: Medical Code(s): L97.929 - Non-pressure chronic ulcer of unspecified part of left lower leg with unspecified severity (5) Ulcer of left medial lower extremity Start date: 09/30/20 Status: Acute Qualifiers: Non-pressure ulcer stage: limit
[2020-10-01 14:52] VITALS: BP 116/67; PULSE 86; RESP 19; TEMP 36.9; O2SAT 98
--- NOTE | 2020-10-01 15:15 | PC.NURSE ---
PT IS AOX4, ABLE TO MAKE NEEDS KNOWN TO STAFF, HE SAT UP TO THE CHAIR FOR MOST OF THE SHIFT AND TOLERATED WELL. TOLERATING PO INTAKE, DENIES NVD, ABD IS SOFT ROUND AND NON-TENDER WITH ACTIVE BOWEL SOUNDS X4, LUNGS REMAIN CTA, DOES NOT REQUIRE O2 SUPPORT, DSG CHANGE ORDERED, PT SHOWERED WITH LINEN CHANGE. LLE IS RED AND SWOLLEN WITH LARGE OPEN AREA, GREENISH COLORED DRAINAGE NOTED TO BE OOZING FROM WOUND, PT DENIES PAIN. VITAL SIGNS STABLE.
[2020-10-01 20:00] VITALS: BP 128/78; PULSE 87; RESP 19; TEMP 37.1; O2SAT 98
--- NOTE | 2020-10-02 03:26 | PC.NURSE ---
Patient has been pleasant this evening. He has been alert and oriented x4. Patient has had no complaints this shift. There is a dressing that is clean, dry, and intact on the LLE from ankle to mid calf. Redness and warmth is noted above the dressing to just below the knee and swelling to the same foot. Patient has rested well through the night. Will continue to monitor. Call light is within reach, bed in lowest position.
[2020-10-02 04:00] VITALS: BP 113/75; PULSE 83; RESP 18; TEMP 37.2; O2SAT 97
[2020-10-02 04:13] VITALS: BMI 35.8
--- NOTE | 2020-10-02 06:36 | PC.NURSE ---
Vishal Chacon from lab called at [phone] with a would culture result on patient. Verified x2 and name. Resulted MRSA, patient now in contact precautions. Called results to receptionist nurse MD at [phone]
[2020-10-02 07:14] VITALS: BP 121/81; PULSE 90; RESP 18; TEMP 37.1; O2SAT 98
--- NOTE | 2020-10-02 08:51 | HMH.ACPN2 ---
Internal Medicine - PN: Subj *Date: 10/03/20 *Time: 06:50 Interval history: doing better - still with swelling and has mrsa - Exam Vital signs and Labs for Last 24 Hours: Temp Pulse Resp BP Pulse Ox 98.7 F 90 18 121/81 98 10/02/20 07:14 10/02/20 07:14 10/02/20 07:14 10/02/20 07:14 10/02/20 07:14 Laboratory Results - last 24 hr 10/01/20 08:08: Vancomycin Trough 9.5 I & O for Last 24 hours: Intake & Output 09/29/20 09/30/20 10/01/20 10/02/20 11:59 11:59 11:59 11:59 Intake Total 360 / 360 2019 3274 / 3274 Balance 360 / 360 2019 3274 / 3274 Weight 252 lb 252 lb 250 lb 5 oz Microbiology Reports for the Last 24 Hours: Microbiology 09/30/20 Unknown Leg,Left - Drainage Gram Stain - Final 09/30/20 Unknown Leg,Left - Drainage Wound Culture - Final Staphylococcus aureus 09/29/20 16:36 Blood Blood Culture - Preliminary NO GROWTH AFTER 48 HOURS 09/29/20 16:36 Blood Blood Culture - Preliminary NO GROWTH AFTER 48 HOURS - Constitutional no acute distress, obese - *Routine HEENT Exam Head: Present: normocephalic Eye: Present: EOMI, PERRL ENT: Present: mucous membranes dry - *Routine Neck Exam Present: supple. Absent: JVD - *Routine Respiratory Exam Present: CTA bilaterally - *Routine Cardiovascular Exam Present: RRR - *Routine Abdominal Exam Present: soft - *Routine Extremities Exam Present: edema - *Routine Skin Exam Comments: draining cellulitis lt lower ext - *Routine Neurological Exam Present: alert - Routine Psychiatric Exam Present: normal affect Assessment and Plan (1) SIRS (systemic inflammatory response syndrome) Status: Acute Category: Medical Code(s): R65.10 - Systemic inflammatory response syndrome (SIRS) of non-infectious origin without acute organ dysfunction (2) Cellulitis Status: Acute Qualifiers: Site of cellulitis: extremity Site of cellulitis of extremity: lower extremity Laterality: left Qualified Code(s): L03.116 - Cellulitis of left lower limb Category: Medical Code(s): L03.90 - Cellulitis, unspecified (3) Edema of left lower extremity Start date: 09/30/20 Status: Acute Category: Medical Code(s): R60.0 - Localized edema (4) Ulcer of left lower leg Status: Acute Qualifiers: Non-pressure ulcer stage: limited to breakdown of skin Qualified Code(s): L97.921 - Non-pressure chronic ulcer of unspecified part of left lower leg limited to breakdown of skin Category: Medical Code(s): L97.929 - Non-pressure chronic ulcer of unspecified part of left lower leg with unspecified severity (5) Ulcer of left medial lower extremity Start date: 09/30/20 Status: Acute Qualifiers: Non-pressure ulcer stage: limited to breakdown of skin Qualified Code(s): L97.821 - Non-pressure chronic ulcer of other part of left lower leg limited to breakdown of skin Category: Medical Code(s): L97.829 - Non-pressure chronic ulcer of other part of left lower leg with unspecified severity (6) Immunodeficiency Status: Chronic Category: Medical Code(s): D84.9 - Immunodeficiency, unspecified (7) Left leg cellulitis Status: Acute Category: Medical Code(s): L03.116 - Cellulitis of left lower limb (8) Diabetes Status: Acute Category: Medical Code(s): E11.9 - Type 2 diabetes mellitus without complications (9) Obesity (BMI 30-39.9) Status: Acute Category: Medical Code(s): E66.9 - Obesity, unspecified (10) Hypothyroidism Status: Chronic Qualifiers: Hypothyroidism type: acquired Qualified Code(s): E03.9 - Hypothyroidism, unspecified Category: Medical Code(s): E03.9 - Hypothyroidism, unspecified (11) MRSA (methicillin resistant Staphylococcus aureus) infection Status: Acute Category: Medical Code(s): A49.02 - Methicillin resistant Staphylococc
[2020-10-02 09:22] LABS: Vancomycin,Trough 16.1 ug/mL (5.0-10.0)
--- NOTE | 2020-10-02 09:35 | PC.NURSE ---
DELAYING VANC INFUSION INSTRUCTED VIA PHARMACY
--- NOTE | 2020-10-02 10:12 | PC.NURSE ---
OKAY TO GIVE VANC PER PHARMACY
--- NOTE | 2020-10-02 10:31 | HMH.PHACONS ---
- Pharmacy Consult Date: 10/02/20 Time: 10:32 Referring provider: DR. BRADLEY Reason for Consult:: VANCOMYCIN TROUGH LEVEL Allergies and ADEs:: Allergies Allergy/AdvReac Type Severity Reaction Status Date / Time No Known Allergies Allergy Verified 06/14/20 11:01 Home Medications:: Home Medications Medication Instructions Recorded Confirmed Type Atorvastatin Calcium [Lipitor 40mg 40 mg PO DAILY 09/29/20 09/29/20 History Tab] Levothyroxine Sodium 25 mcg PO DAILY 09/29/20 09/29/20 History [Levothyroxine] Triamterene/Hydrochlorothiazid 1 tab PO DAILY 09/29/20 09/29/20 History [Triamterene-Hctz 75-50 mg Tab] Fenofibrate Nanocrystallized 145 mg PO DAILY 09/30/20 09/30/20 History [Fenofibrate] Height: 1.78 m Weight: 113.54 kg Laboratory Results:: Laboratory Results - last 24 hr 10/02/20 08:43: Vancomycin Trough 16.1 H Medical History: Reports:: Anxiety, Heart Murmur, Hyperlipidemia, Hypertension Denies:: Cancer, Diabetes Mellitus Type 1, Diabetes Mellitus Type 2, MRSA Assessment and Plan (1) SIRS (systemic inflammatory response syndrome) Status: Acute Category: Medical Code(s): R65.10 - Systemic inflammatory response syndrome (SIRS) of non-infectious origin without acute organ dysfunction (2) Cellulitis Status: Acute Qualifiers: Site of cellulitis: extremity Site of cellulitis of extremity: lower extremity Laterality: left Qualified Code(s): L03.116 - Cellulitis of left lower limb Category: Medical Code(s): L03.90 - Cellulitis, unspecified (3) Edema of left lower extremity Start date: 09/30/20 Status: Acute Category: Medical Code(s): R60.0 - Localized edema (4) Ulcer of left lower leg Status: Acute Qualifiers: Non-pressure ulcer stage: limited to breakdown of skin Qualified Code(s): L97.921 - Non-pressure chronic ulcer of unspecified part of left lower leg limited to breakdown of skin Category: Medical Code(s): L97.929 - Non-pressure chronic ulcer of unspecified part of left lower leg with unspecified severity (5) Ulcer of left medial lower extremity Start date: 09/30/20 Status: Acute Qualifiers: Non-pressure ulcer stage: limited to breakdown of skin Qualified Code(s): L97.821 - Non-pressure chronic ulcer of other part of left lower leg limited to breakdown of skin Category: Medical Code(s): L97.829 - Non-pressure chronic ulcer of other part of left lower leg with unspecified severity (6) Immunodeficiency Status: Chronic Category: Medical Code(s): D84.9 - Immunodeficiency, unspecified (7) Left leg cellulitis Status: Acute Category: Medical Code(s): L03.116 - Cellulitis of left lower limb (8) Diabetes Status: Acute Category: Medical Code(s): E11.9 - Type 2 diabetes mellitus without complications (9) Obesity (BMI 30-39.9) Status: Acute Category: Medical Code(s): E66.9 - Obesity, unspecified (10) Hypothyroidism Status: Chronic Qualifiers: Hypothyroidism type: acquired Qualified Code(s): E03.9 - Hypothyroidism, unspecified Category: Medical Code(s): E03.9 - Hypothyroidism, unspecified - Assessment and plan all Dx Assessment and Plan for all problems:: PATIENT'S VANCOMYCIN TROUGH LEVEL WAS 16.5 MCG/ML THIS AM. RECOMMEND PATIENT CONTINUE WITH VANCOMYCIN 2000 MG Q8H AT THIS TIME. PHARMACY WILL FOLLOW DAILY AND ADJUST APPROPRIATE.
[2020-10-02 14:57] VITALS: BP 127/62; PULSE 83; RESP 18; TEMP 37; O2SAT 98
--- NOTE | 2020-10-02 16:21 | PC.NURSE ---
HE HAS BEEN UP TO CHAIR FOR MOST OF SHIFT, AMBULATES IN ROOM INDEPENDENTLY. VITAL SIGNS HAVE REMAINED STABLE THUS FAR. EDEMA NOTED TO LLE. DSG WAS CHANGED PER ORDER. HE DENIES PAIN TO LLE. FOOT IS APPROPRIATE IN COLOR AND WARM TO TOUCH.
[2020-10-02 19:26] VITALS: BP 135/72; PULSE 83; RESP 16; TEMP 37.3; O2SAT 98
[2020-10-03 03:40] VITALS: BP 129/74; PULSE 80; RESP 20; TEMP 37.1; O2SAT 98
--- NOTE | 2020-10-03 04:41 | PC.NURSE ---
Patient is alert and oriented x4. He has rested well this shift. Patient has had no complaints this shift. Left lower leg extremity noted and is clean dry and intact. Left foot is still edematous but pulse is palpable. Patient is independent upon ambulation. Will continue to monitor. Patient call light within reach, bed in lowest position.
[2020-10-03 05:00] VITALS: BMI 35.8
[2020-10-03 08:00] VITALS: BP 123/74; PULSE 78; RESP 18; TEMP 36.9; O2SAT 96
[2020-10-03 08:38] LABS: Anion Gap 10.6 mEq/L (5-15); Blood Urea Nitrogen 14 mg/dl (9-20); Calcium 8.7 mg/dl (8.4-10.2); Carbon Dioxide 34 mmol/L (22.0-30.0); Chloride 98 mmol/L (98-107); Creatinine Clearance Estimated 142 mL/min (50-200); Estimated Glomerular Filt Rate 79 ml/min (>60); GFR (African American) 96 ML/MIN (>60); Glucose 231 mg/dl (74-100); Potassium 3.6 mmoL/L (3.5-5.1); Sodium 139 mmol/L (136-145)
[2020-10-03 08:58] LABS: Vancomycin,Trough 17.5 ug/mL (5.0-10.0)
--- NOTE | 2020-10-03 09:11 | HMH.ACPN2 ---
Internal Medicine - PN: Subj *Date: 10/03/20 *Time: 08:00 Interval history: pt states he is feeling well. the area on his leg is now having drainage with increase in tenderness and edema Exam Vital signs and Labs for Last 24 Hours: Temp Pulse Resp BP Pulse Ox 98.5 F 78 18 123/74 96 10/03/20 08:00 10/03/20 08:00 10/03/20 08:00 10/03/20 08:00 10/03/20 08:00 Laboratory Results - last 24 hr 10/02/20 08:43: Vancomycin Trough 16.1 H 10/03/20 08:10: Sodium 139, Potassium 3.6, Chloride 98, Carbon Dioxide 34 H, Anion Gap 10.6, BUN 14 D, Creatinine 1.00, Estimated Creat Clear 142, Estimated GFR 79, Est GFR ( Amer) 96, Glucose 231 H, Calcium 8.7 10/03/20 08:10: Vancomycin Trough 17.5 H I & O for Last 24 hours: Intake & Output 09/30/20 10/01/20 10/02/20 10/03/20 11:59 11:59 11:59 11:59 Intake Total 360 / 360 2019 3274 / 3274 3424 / 3424 Balance 360 / 360 2019 3274 / 3274 3424 / 3424 Weight 252 lb 252 lb 250 lb 5 oz 250 lb 5.005 oz Microbiology Reports for the Last 24 Hours: Microbiology 09/30/20 Unknown Leg,Left - Drainage Gram Stain - Final 09/30/20 Unknown Leg,Left - Drainage Wound Culture - Final Staphylococcus aureus - Constitutional no acute distress - *Routine HEENT Exam Head: Present: normocephalic Eye: Present: PERRL ENT: Present: mucous membranes moist - *Routine Neck Exam Present: supple. Absent: lymphadenopathy - *Routine Respiratory Exam Present: CTA bilaterally - *Routine Cardiovascular Exam Present: RRR - *Routine Abdominal Exam Present: soft, normoactive bowel sounds. Absent: tenderness - *Routine Extremities Exam Present: edema, tenderness. Absent: cyanosis, clubbing - *Routine Skin Exam Present: warm, wounds. Absent: rash Comments: increase edema and drainage - *Routine Neurological Exam Present: alert, oriented X3 - Routine Psychiatric Exam Present: normal affect Assessment and Plan (1) SIRS (systemic inflammatory response syndrome) Status: Acute Category: Medical Code(s): R65.10 - Systemic inflammatory response syndrome (SIRS) of non-infectious origin without acute organ dysfunction (2) Cellulitis Status: Acute Qualifiers: Site of cellulitis: extremity Site of cellulitis of extremity: lower extremity Laterality: left Qualified Code(s): L03.116 - Cellulitis of left lower limb Category: Medical Code(s): L03.90 - Cellulitis, unspecified (3) Edema of left lower extremity Start date: 09/30/20 Status: Acute Category: Medical Code(s): R60.0 - Localized edema (4) Ulcer of left lower leg Status: Acute Qualifiers: Non-pressure ulcer stage: limited to breakdown of skin Qualified Code(s): L97.921 - Non-pressure chronic ulcer of unspecified part of left lower leg limited to breakdown of skin Category: Medical Code(s): L97.929 - Non-pressure chronic ulcer of unspecified part of left lower leg with unspecified severity (5) Ulcer of left medial lower extremity Start date: 09/30/20 Status: Acute Qualifiers: Non-pressure ulcer stage: limited to breakdown of skin Qualified Code(s): L97.821 - Non-pressure chronic ulcer of other part of left lower leg limited to breakdown of skin Category: Medical Code(s): L97.829 - Non-pressure chronic ulcer of other part of left lower leg with unspecified severity (6) Immunodeficiency Status: Chronic Category: Medical Code(s): D84.9 - Immunodeficiency, unspecified (7) Left leg cellulitis Status: Acute Category: Medical Code(s): L03.116 - Cellulitis of left lower limb (8) Diabetes Status: Acute Category: Medical Code(s): E11.9 - Type 2 diabetes mellitus without complications (9) Obesity (BMI 30-39.9) Status: Acute Category: Medical Code(s): E66.9 - Obesity, unspecified (10) Hypothyroidism Status: Chronic Qualifiers: Hypothyroidism type: acquired Julián
--- NOTE | 2020-10-03 09:36 | CT_ITS ---
PROCEDURE: CT LOWER LEG LT W CON CLINICAL HISTORY: cellulitis Pain swelling and redness COMPARISON: CT CT LOWER LEG LT WO CON from 09/30/2020 TECHNIQUE: Axial images obtained with sagittal and coronal reformats. All CT scans at the facility use one or more dose reduction, viz: automated exposure control, ma/kV adjustment per patient size (including targeted exams where dose is matched to indication, i.e. head), or iterative reconstruction technique. FINDINGS: There is diffuse subcutaneous soft tissue swelling with stranding of the subcutaneous fat and fluid in the subcutaneous region about the lower leg inferiorly and laterally and at the ankle region greater along the lateral aspect. No abscess is apparent. However, there is a small amount of subcutaneous air now noted in the deep subcutaneous tissues at the anterior medial mid tibial region and in the absence of any open wound or recent debridement would be suggestive a gas-forming infection. A small amount of air is present in the subcutaneous tissues at this region and also in the deeper tissue just superficial to the tibia. There is some soft tissue swelling in this region but no localized fluid collection. No bony destructive process apparent. IMPRESSION: There remains diffuse subcutaneous stranding of the fat with fluid density in the subcutaneous region about the ankle and lower leg consistent with cellulitis. There is now small amount of gas noted within the subcutaneous tissues at the mid tibial region medially and also within the deeper tissues superficial to the tibia. Has the patient had interval debridement or is there an open wound? If no open wound or interval debridement then, gas-forming infection would be a consideration. No localized abscess apparent Dictated by: Yamil Gustafson MD 10/03/2020 11:44 Yamil Gustafson MD in [facility] 10/03/2020 11:44
--- NOTE | 2020-10-03 09:38 | HMH.ORTHPN ---
Subjective Date: 10/03/20 <Lizzie Parrish - 10/03/20 09:40> Time: 08:15 <Lizzie Parrish - 10/03/20 09:40> Principal diagnosis: Left leg cellulitis <Lizzie Parrish - 10/03/20 09:40> Interval history: Patient doing well this morning. Leg still is very edematous and has a lot of erythema still around the area. The site still ulcerated and has copious amounts of drainage that was creamy pearly and when compressed this morning. Area very tender all the way around and extending some of the leg but not to the extent of the knee. The Doppler was negative for any DVT in the lower extremity. Will obtain a CT with contrast of the lower extremity to check for any small pockets of abscess localized to the anterior lower leg where the abscess is coming from. Discussed with the patient that if the site is not improving and based upon results of the CT he may need to undergo a incision and drainage to clean out the area more thoroughly. Patient was not opposed to this treatment. <Lizzie Parrish - 10/03/20 09:40> PN: Obj Ex Vital signs: Temp Pulse Resp BP Pulse Ox 98.5 F 78 18 123/74 96 10/03/20 08:00 10/03/20 08:00 10/03/20 08:00 10/03/20 08:00 10/03/20 08:00 <Teresita Espinosa - 10/03/20 13:51> Temp Pulse Resp BP Pulse Ox 98.5 F 78 18 123/74 96 10/03/20 08:00 10/03/20 08:00 10/03/20 08:00 10/03/20 08:00 10/03/20 08:00 <Lizzie Parrish - 10/03/20 09:40> - Constitutional no acute distress <Lizzie Parrish - 10/03/20 10:34> - Routine HEENT Exam Head: Present: normocephalic <JobevelynLizzie boswell - 10/03/20 10:34> Eye: Present: EOMI <ShivaniLizziekrissy Carrasco 10/03/20 10:34> ENT: Present: mucous membranes moist <Lizzie Parrish 10/03/20 10:34> - Routine Neck Exam Present: full ROM, trachea midline <Lizzie Parrish 10/03/20 10:34> - Routine Respiratory Exam Absent: respiratory distress <Lizzie Parrish 10/03/20 10:34> - Routine Cardiovascular Exam Present: RRR <Lizzie Parrish 10/03/20 10:34> - Routine Abdominal Exam Present: soft <Lizzie Parrish 10/03/20 10:34> - Routine Extremities Exam Present: edema (Left lower leg 2+ edema/ cellulitis), pulses intact, normal capillary refill, tenderness (Left lower leg tenderness around ulcer). Absent: calf tenderness <Lizzie Parrish 10/03/20 10:34> - Detailed Lower Extremity Exam Leg image: 1 - Left anterior medial ulcer has erythema surrounding the borders, Copious amounts of creamy pustular drainage that appears to be coming from two small areas on the ulser. This was cultured and has resulted as MRSA. Ulcer limited to skin breakdown, superficial measuring 2.2x2.3x0cm. Site cleaned with saline and the drainage was compressed as much as he could tolerate. The site was not debrided as the top of the ulcer was expsoed. No malodor noted from the drainage. The cellulits does not extend past the knee, it is mostly contained to lower anterior leg. Site dressed with betadine soaked 4x4, DSD and kerlex. Patient will be getting a CT scan with contrast to r/o any small abscess to the lower anterior leg. 2 - LLE anterior lateral ulcer: Limited to skin breakdown. No visible drainage noted. Erythema and edema noted to the borders of the wound. Site cleaned with normal saline, No acute signs of infection noted at this time. No evidence of purulence or malodor. Post debridement measurements are 1.4 x 0.2 x 0 cm. The site was dressed included in the medial ulcer dressing. <Lizzie Parrish 10/03/20 10:34> - Routine Back/Spine/Pelvis Exam Back/Spine: Present: full ROM <Lizzie Parrish 10/03/20 10:34> - Routine Skin Exam Present: erythema, warm, wounds (LLE anterior/medial ulcer and LLE anterior/lateral ulcer) <Lizzie Parrish 10/03/20 10:34> - Routine Neurological Exam Present: alert, oriented X3, normal reflexes, normal tone, vision grossly inta
[2020-10-03 10:07] LABS: Basophils # 0.1 K/mm3 (0-0.2); Eosinophils # 0.2 K/mm3 (0.0-0.4); Eosinophils % 3.3 % (0.1-12.0); Hematocrit 39.7 % (42.0-52.0); Hemoglobin 13.5 g/dL (14.1-18.0); Lymphocytes # 1.2 K/mm3 (0.7-4.5); Lymphocytes % 25.4 % (10-50); Mean Corpuscular HGB Conc 33.9 g/dL (31.8-35.4); Mean Corpuscular Hemoglobin 30.6 pg (27.0-31.2); Mean Corpuscular Volume 90.2 fl (80-94); Mean Platelet Volume 6.6 fl (7.4-10.4); Monocytes # 0.4 K/mm3 (0.1-1.0); Monocytes % 9.2 % (1.7-9.3); Neutrophils % 61.1 % (37.0-80.0); Platelet Count 291 K/mm3 (142-424); Red Cell Distribution Width 13.3 % (11.5-17.5); White Blood Count 4.8 K/mm3 (4.8-10.8)
[2020-10-03 10:16] LABS: Chloride 99 mmol/L (98-107)
[2020-10-03 10:17] LABS: Potassium 3.8 mmoL/L (3.5-5.1); Sodium 139 mmol/L (136-145)
[2020-10-03 10:19] LABS: Alanine Aminotransferase 47 U/L (12-78); Alkaline Phosphatase 123 U/L (38-126); Aspartate Amino Transferase 55 U/L (17-59); Bilirubin,Total 0.5 mg/dl (0.2-1.3); Blood Urea Nitrogen 15 mg/dl (9-20); Creatinine Clearance Estimated 142 mL/min (50-200); Estimated Glomerular Filt Rate 79 ml/min (>60); GFR (African American) 96 ML/MIN (>60)
[2020-10-03 10:20] LABS: Albumin Level 3.8 g/dl (3.5-5.0); Albumin/Globulin Ratio 1.2 (1.1-1.8); Anion Gap 9.8 mEq/L (5-15); Calcium 8.9 mg/dl (8.4-10.2); Carbon Dioxide 34 mmol/L (22.0-30.0); Globulin 3.1 g/dL (1.3-3.2); Glucose 188 mg/dl (74-100); Total Protein,Serum 6.9 g/dl (6.3-8.2)
[2020-10-03 10:35] LABS: C-Reactive Protein 41.7 mg/L (0-4)
[2020-10-03 11:41] LABS: Erythrocyte Sedimentation Rate 94 mm/hr (0-15)
--- NOTE | 2020-10-03 11:41 | HMH.PHACONS ---
- Pharmacy Consult Date: 10/03/20 Time: 11:41 Referring provider: DR. BRADLEY Reason for Consult:: VANCOMYCIN LEVEL Allergies and ADEs:: Allergies Allergy/AdvReac Type Severity Reaction Status Date / Time No Known Allergies Allergy Verified 06/14/20 11:01 Home Medications:: Home Medications Medication Instructions Recorded Confirmed Type Atorvastatin Calcium [Lipitor 40mg 40 mg PO DAILY 09/29/20 09/29/20 History Tab] Levothyroxine Sodium 25 mcg PO DAILY 09/29/20 09/29/20 History [Levothyroxine] Triamterene/Hydrochlorothiazid 1 tab PO DAILY 09/29/20 09/29/20 History [Triamterene-Hctz 75-50 mg Tab] Fenofibrate Nanocrystallized 145 mg PO DAILY 09/30/20 09/30/20 History [Fenofibrate] Height: 1.78 m Weight: 113.54 kg Laboratory Results:: Laboratory Results - last 24 hr 10/03/20 08:10: Sodium 139, Potassium 3.6, Chloride 98, Carbon Dioxide 34 H, Anion Gap 10.6, BUN 14 D, Creatinine 1.00, Estimated Creat Clear 142, Estimated GFR 79, Est GFR ( Amer) 96, Glucose 231 H, Calcium 8.7 10/03/20 08:10: Vancomycin Trough 17.5 H 10/03/20 09:53: WBC 4.8 D, RBC 4.40 L, Hgb 13.5 L, Hct 39.7 L, MCV 90.2, MCH 30.6, MCHC 33.9, RDW 13.3, Plt Count 291 D, MPV 6.6 L, Neut % (Auto) 61.1, Lymph % (Auto) 25.4, [place] % (Auto) 9.2, Eos % (Auto) 3.3, Baso % (Auto) 1.0, Neut # (Auto) 3.0, Lymph # (Auto) 1.2, [place] # (Auto) 0.4, Eos # (Auto) 0.2, Baso # (Auto) 0.1 10/03/20 09:53: Sodium 139, Potassium 3.8, Chloride 99, Carbon Dioxide 34 H, Anion Gap 9.8, BUN 15, Creatinine 1.00, Estimated Creat Clear 142, Estimated GFR 79, Est GFR ( Amer) 96, Glucose 188 H, Calcium 8.9, Total Bilirubin 0.5, AST 55, ALT 47, Alkaline Phosphatase 123, C-Reactive Protein 41.7 H, Total Protein 6.9, Albumin 3.8, Globulin 3.1, Albumin/Globulin Ratio 1.2 Medical History: Reports:: Anxiety, Heart Murmur, Hyperlipidemia, Hypertension Denies:: Cancer, Diabetes Mellitus Type 1, Diabetes Mellitus Type 2, MRSA Assessment and Plan (1) SIRS (systemic inflammatory response syndrome) Status: Acute Category: Medical Code(s): R65.10 - Systemic inflammatory response syndrome (SIRS) of non-infectious origin without acute organ dysfunction (2) Cellulitis Status: Acute Qualifiers: Site of cellulitis: extremity Site of cellulitis of extremity: lower extremity Laterality: left Qualified Code(s): L03.116 - Cellulitis of left lower limb Category: Medical Code(s): L03.90 - Cellulitis, unspecified (3) Edema of left lower extremity Start date: 09/30/20 Status: Acute Category: Medical Code(s): R60.0 - Localized edema (4) Ulcer of left lower leg Status: Acute Qualifiers: Non-pressure ulcer stage: limited to breakdown of skin Qualified Code(s): L97.921 - Non-pressure chronic ulcer of unspecified part of left lower leg limited to breakdown of skin Category: Medical Code(s): L97.929 - Non-pressure chronic ulcer of unspecified part of left lower leg with unspecified severity (5) Ulcer of left medial lower extremity Start date: 09/30/20 Status: Acute Qualifiers: Non-pressure ulcer stage: limited to breakdown of skin Qualified Code(s): L97.821 - Non-pressure chronic ulcer of other part of left lower leg limited to breakdown of skin Category: Medical Code(s): L97.829 - Non-pressure chronic ulcer of other part of left lower leg with unspecified severity (6) Immunodeficiency Status: Chronic Category: Medical Code(s): D84.9 - Immunodeficiency, unspecified (7) Left leg cellulitis Status: Acute Category: Medical Code(s): L03.116 - Cellulitis of left lower limb (8) Diabetes Status: Acute Category: Medical Code(s): E11.9 - Type 2 diabetes mellitus without complications (9) Obesity (BMI 30-39.9) Status: Acute Category: Medical Code(s): E66.9 - Obesity, unspecified (10) Hypothyroidism Status: Chronic Qualifiers: Hypothyroidism type: acquired Qualified Code(s):
--- NOTE | 2020-10-03 12:16 | PC.NURSE ---
surgery team notified of I&D at [address] Espinosa
[2020-10-03 12:50] LABS: POC Glucose,Bedside 141 (70-110)
--- NOTE | 2020-10-03 12:53 | SW/DCPLANNER ---
PATIENT REMAINS IN THE ACUTE HOSPITAL WITH PODIATRY TO SEE HIM IN THE AM... MAY BE ABLE TO DISCHARGE AFTER SEEN ON .
--- NOTE | 2020-10-03 12:56 | DIET.NUTRFU ---
PO intakes 100%, BG moderate-avg.177. Pt has been provided diet edu for wound healing (high protein, avoidance high GI foods/beverages).
[2020-10-03 13:50] VITALS: BP 123/74; PULSE 78; RESP 14; RESP 16; TEMP 36.9; O2SAT 96
--- NOTE | 2020-10-03 13:51 | HMH.OPNOTE ---
Date of procedure: 10/03/20 Pre-op Diagnosis:: 1. Left leg cellulitis 2. Left leg gas infection 3. Left ankle ulcer Post-op Diagnosis:: Same Procedure performed:: 1. Left leg incision and drainage 2. Left leg deep wound cultures 3. Left partial delayed primary closure Surgeon:: Teresita Espinosa DPM Anesthesia: local (0.5% marcaine plain 40cc) Estimated blood loss (mL): 15 Clinical Note:: Patient is a newly diagnosed 50-year-old diabetic male who reports edema 3 weeks ago. He states over the last few weeks the swelling has gotten progressively worse. Pain started last week. Patient was admitted and CT was performed 09/30/2020 which was negative for gas, abscess and osteomyelitis. Patient has been on IV antibiotics for few days with no resolution of symptoms. A new CT was ordered today with contrast which showed some new gas formation at the anterior medial dye level. New images were discussed with the patient. We discussed conservative versus surgical treatment options. We discussed conservative care including continued oral vs IV antibiotics and local wound care versus surgical incision and drainage. Patient understands that they could have wound healing complications including delayed healing and infection. We discussed that if the wound does not heal, it is possible that they may need a more debridement. Patient understands if infection spreads into the bone, it may warrante proximal amputation and could result in further loss of digits, loss of partial foot or loss of leg. We discussed the risks and benefits in great detail. Other surgical risks include: prolonged pain and swelling, further infection requiring oral or IV antibiotics, delay in healing of soft tissue or bone, nerve or blood vessel damage, CRPS/RSD, DVT, anesthesia complications, and even . All questions answered. Patient verbalized understanding. Consent obtained. Operative findings:: Left lower extremity edema and erythema. Some purulent creamy drainage expressed from the anterior dye wound. Left anterior medial dye/leg ulcer has erythema surrounding the borders. Ulcer limited to skin breakdown, superficial pre debridement measuring 2.2x2.3x0cm. No malodor noted from the drainage. The cellulitis does not extend past the knee, it is contained to lower anterior leg. LLE anterior lateral ulcer: Limited to skin breakdown. Pre debridement measurements are 1.4 x 0.2 x 0 cm. No visible drainage noted. Erythema and edema noted to the borders of the wound. No evidence of purulence or malodor. 3 linear incisions made over the anterior medial, central and lateral dye. Operative note:: On this date and time the patient was deemed an appropriate surgical candidate. With informed consent time patient was transferred from the preoperative holding area to the operating theater placed on table in a normal supine position. Left lower extremity was prepped and draped in normal sterile fashion. No tourniquet utilized. Left leg incision and drainage, deep wound cultures: 40 cc of half percent Marcaine plain were infiltrated in regional distal leg block. Attention was directed to the left anterior medial dye where edema and erythema was noted along. Utilizing a 15 blade, a linear incision was made over the wound site, 3x0.3x1cm. Incision extended full-thickness through skin subcutaneous tissue down to/including deep fascia but not to the bone. There was some creamy milky purulence noted. [id number] pressure was applied to the incision and immediately 3 more cc of purulent drainage was expressed. Wound culture taken. Next hemostat used to explore the area. There was some deep tracking and tunneling proximal medial about 1 cm noted. A separate linear incision was made over the central dye approximately 2 x 0.2 x 0.8 cm. The incision was carried down through skin, subcutaneous tissue into/including deep fascia. Minimal purulence noted at this level. A third incision was made over the left ante
--- NOTE | 2020-10-03 16:53 | PC.NURSE ---
Pt has been pleasant and cooperative this shift. A&O X4. No complaints of pain. Pt is on room air with sats. >90%. Lungs CTA. 2+ pitting edema noted to LLE. LT pedal pulse is diminished, although still palpable. Debridement and dressing change for LT dye ulceration today per Podiatry. Pt ambulates independently to/from the bathroom and throughout the room. Pt sat up in the chair for several hours today. Urine is clear and yellow. No BM today. Appetite is good and pt eats the majority of all meals. 20 G peripheral IV in the LT AC is patent and infusing NS @ 75 ML/HR. VSS. Call light within reach. Will continue to monitor.
[2020-10-03 20:00] VITALS: BP 139/80; PULSE 86; RESP 18; TEMP 36.8; O2SAT 97
--- NOTE | 2020-10-04 03:45 | PC.NURSE ---
Patient is alert and oriented x4. Patient required an new IV midshift and has a 20gauge in his right forearm with NS at 75mL/hr. LLE is elevated and ice pack applied. L foot has some edema noted. Dsg is clean, dry and intact. Will continue to monitor. Call light in reach, bed in lowest position.
[2020-10-04 04:00] VITALS: BP 181/116; PULSE 80; RESP 16; TEMP 37.1; O2SAT 97
[2020-10-04 04:22] VITALS: BP 156/96
[2020-10-04 04:28] VITALS: BMI 35.8
[2020-10-04 07:05] LABS: Basophils # 0.1 K/mm3 (0-0.2); Eosinophils # 0.2 K/mm3 (0.0-0.4); Eosinophils % 3.4 % (0.1-12.0); Hematocrit 37.3 % (42.0-52.0); Hemoglobin 12.6 g/dL (14.1-18.0); Lymphocytes # 1.8 K/mm3 (0.7-4.5); Lymphocytes % 31.7 % (10-50); Mean Corpuscular HGB Conc 33.7 g/dL (31.8-35.4); Mean Corpuscular Hemoglobin 30.2 pg (27.0-31.2); Mean Corpuscular Volume 89.9 fl (80-94); Mean Platelet Volume 6.4 fl (7.4-10.4); Monocytes # 0.5 K/mm3 (0.1-1.0); Monocytes % 9.6 % (1.7-9.3); Neutrophils # 3.1 K/mm3 (1.8-7.8); Neutrophils % 54.3 % (37.0-80.0); Platelet Count 296 K/mm3 (142-424); Red Blood Count 4.15 M/mm3 (4.60-6.20); Red Cell Distribution Width 13.4 % (11.5-17.5); White Blood Count 5.7 K/mm3 (4.8-10.8)
[2020-10-04 07:08] LABS: Chloride 101 mmol/L (98-107); Sodium 139 mmol/L (136-145)
[2020-10-04 07:09] LABS: Potassium 3.8 mmoL/L (3.5-5.1)
[2020-10-04 07:11] LABS: Blood Urea Nitrogen 12 mg/dl (9-20); Creatinine Clearance Estimated 142 mL/min (50-200); Estimated Glomerular Filt Rate 79 ml/min (>60); GFR (African American) 96 ML/MIN (>60)
[2020-10-04 07:12] LABS: Calcium 8.7 mg/dl (8.4-10.2); Carbon Dioxide 32 mmol/L (22.0-30.0); Glucose 153 mg/dl (74-100)
[2020-10-04 07:13] LABS: Anion Gap 9.8 mEq/L (5-15)
[2020-10-04 07:40] LABS: Erythrocyte Sedimentation Rate 94 mm/hr (0-15)
[2020-10-04 07:41] VITALS: BP 156/83; PULSE 85; RESP 16; TEMP 36.6; O2SAT 97
--- NOTE | 2020-10-04 08:09 | HMH.ORTHPN ---
Subjective Date: 10/04/20 Time: 07:45 Principal diagnosis: Left leg cellulitis Interval history: Patient is resting comfortably in the chair recliner. He denies nausea vomiting, fever chills, shortness of breath and chest pain. Reports no pain currently. Discussed home situation. 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 Patient would like to come to the hospital daily for dressing changes upon discharge. PN: Obj Ex Vital signs: Temp Pulse Resp BP Pulse Ox 97.8 F 85 16 156/83 H 97 10/04/20 07:41 10/04/20 07:41 10/04/20 07:41 10/04/20 07:41 10/04/20 07:41 - Constitutional no acute distress - Routine HEENT Exam Head: Present: normocephalic Eye: Present: EOMI ENT: Present: mucous membranes moist - Routine Neck Exam Present: supple - Routine Respiratory Exam Absent: respiratory distress - Routine Cardiovascular Exam Present: RRR - Routine Abdominal Exam Present: soft - Routine Extremities Exam Present: edema, pulses intact - Detailed Lower Extremity Exam Leg image: 1 - Left leg cellulitis improved from yesterday. Edema noted, but improving. No purulence, malodor or drainage. Pain 2/10 with palpation of the leg distal anterior medial dye incision. Palpable pedal pulses. No calf or thigh pain noted b/l. - Routine Skin Exam Present: erythema, wounds (sutures clean dry and intact over left anterior dye. Opening to left anterior dye 3x0.1x1.0cm.) Progress Note: A&P (1) SIRS (systemic inflammatory response syndrome) Status: Acute (2) Cellulitis Status: Acute (3) Edema of left lower extremity Status: Acute (4) Ulcer of left lower leg Status: Acute (5) Ulcer of left medial lower extremity Status: Acute (6) Immunodeficiency Status: Chronic (7) Left leg cellulitis Status: Acute (8) Diabetes Status: Acute (9) Obesity (BMI 30-39.9) Status: Acute (10) Hypothyroidism Status: Chronic (11) MRSA (methicillin resistant Staphylococcus aureus) infection Status: Acute Assessment and Plan for All Diagnoses:: 10/03/20, S/p 1. Left leg incision and drainage, 2. Left leg deep wound cultures, 3. Left partial delayed primary closure POD #1 Infection markers trending down. Patient reports improvement in pain. Left leg dressing removed. Skin cleansed with saline. Wound flushed with saline. Area explored with hemostat. No new purulence noted. The left anterior dye wound post partial DPC was left open yesterday and measured was 3 x 0.1 x 1 cm. Betadine soaked 1/2 packing was inserted into the anterior incision site. A new dressing was then applied over the left leg. Plan: Maintain dressing clean dry and intact to left leg, reinforce as necessary. WBaT. Continue IV antibiotics: Vanco. -Recommend IV Dapto for MRSA x2 weeks (then 2 weeks of oral Doxy vs Bactrim) Patient will need daily dressing changes upon discharge at infusion: -Cleanse the skin and flushed with saline. Dry thoroughly. Apply Betadine soaked half-inch packing into the anterior incision opening followed by Betadine soaked gauze, dry gauze, Kerlix, secure with Bobby. Discuss with PCP team, discharge plan. Stable from Podiatry stand point. Follow up in 1 week.
--- NOTE | 2020-10-04 09:02 | HMH.ACPN2 ---
Internal Medicine - PN: Subj *Date: 10/04/20 *Time: 09:05 Interval history: Sitting up in chair left lower extremity elevated with dressing clean dry and intact. He did have a Left leg incision and drainage performed yesterday per podiatry. He reports his pain is at a tolerable level. Wound culture grew Staphylococcus aureus and is covered by vancomycin. We discussed possible options upon discharge for dressing change and possible IV antibiotics. Exam Vital signs and Labs for Last 24 Hours: Temp Pulse Resp BP Pulse Ox 97.8 F 85 16 156/83 H 97 10/04/20 07:41 10/04/20 07:41 10/04/20 07:41 10/04/20 07:41 10/04/20 07:41 Laboratory Results - last 24 hr 10/03/20 09:53: WBC 4.8 D, RBC 4.40 L, Hgb 13.5 L, Hct 39.7 L, MCV 90.2, MCH 30.6, MCHC 33.9, RDW 13.3, Plt Count 291 D, MPV 6.6 L, Neut % (Auto) 61.1, Lymph % (Auto) 25.4, [place] % (Auto) 9.2, Eos % (Auto) 3.3, Baso % (Auto) 1.0, Neut # (Auto) 3.0, Lymph # (Auto) 1.2, [place] # (Auto) 0.4, Eos # (Auto) 0.2, Baso # (Auto) 0.1, ESR 94 H 10/03/20 09:53: Sodium 139, Potassium 3.8, Chloride 99, Carbon Dioxide 34 H, Anion Gap 9.8, BUN 15, Creatinine 1.00, Estimated Creat Clear 142, Estimated GFR 79, Est GFR ( Amer) 96, Glucose 188 H, Calcium 8.9, Total Bilirubin 0.5, AST 55, ALT 47, Alkaline Phosphatase 123, C-Reactive Protein 41.7 H, Total Protein 6.9, Albumin 3.8, Globulin 3.1, Albumin/Globulin Ratio 1.2 10/03/20 12:38: POC Glucose 141 H 10/04/20 06:32: WBC 5.7, RBC 4.15 L, Hgb 12.6 L, Hct 37.3 L, MCV 89.9, MCH 30.2, MCHC 33.7, RDW 13.4, Plt Count 296, MPV 6.4 L, Neut % (Auto) 54.3, Lymph % (Auto) 31.7, [place] % (Auto) 9.6 H, Eos % (Auto) 3.4, Baso % (Auto) 1.0, Neut # (Auto) 3.1, Lymph # (Auto) 1.8, [place] # (Auto) 0.5, Eos # (Auto) 0.2, Baso # (Auto) 0.1 10/04/20 06:32: Sodium 139, Potassium 3.8, Chloride 101, Carbon Dioxide 32 H, Anion Gap 9.8, BUN 12, Creatinine 1.00, Estimated Creat Clear 142, Estimated GFR 79, Est GFR ( Amer) 96, Glucose 153 H, Calcium 8.7 10/04/20 06:32: ESR 94 H I & O for Last 24 hours: Intake & Output 10/01/20 10/02/20 10/03/20 10/04/20 23:59 23:59 23:59 23:59 Intake Total 1430 / 1430 4127 / 4247 2881 / 2881 1255 / 1255 Balance 1430 / 1430 4127 / 4247 2881 / 2881 1255 / 1255 Weight 252 lb 250 lb 5 oz 250 lb 5.005 oz 250 lb 5.005 oz - Constitutional no acute distress - *Routine HEENT Exam Head: Present: normocephalic Eye: Present: EOMI ENT: Present: mucous membranes moist - *Routine Neck Exam Present: trachea midline. Absent: tracheal deviation - *Routine Respiratory Exam Present: CTA bilaterally. Absent: accessory muscle use - *Routine Cardiovascular Exam Present: RRR - *Routine Abdominal Exam Present: soft, normoactive bowel sounds. Absent: tenderness, firm - *Routine Extremities Exam Present: edema, pulses intact. Absent: cyanosis, clubbing Comments: Left lower extremity and pedal edema - *Routine Skin Exam Present: dry, warm, wounds. Absent: intact, cyanosis Comments: Left lower extremity with dressing clean/dry/intact - *Routine Neurological Exam Present: alert, oriented X3. Absent: motor deficit, altered mental status - Routine Psychiatric Exam Present: normal affect, normal thought process. Absent: unable to assess Assessment and Plan (1) SIRS (systemic inflammatory response syndrome) Status: Acute Category: Medical Code(s): R65.10 - Systemic inflammatory response syndrome (SIRS) of non-infectious origin without acute organ dysfunction (2) Cellulitis Status: Acute Qualifiers: Site of cellulitis: extremity Site of cellulitis of extremity: lower extremity Laterality: left Qualified Code(s): L03.116 - Cellulitis of left lower limb Category: Medical Code(s): L03.90 - Cellulitis, unspecified (3) Edema of left lower extremity Start date: 09/30/20 Status: Acute Category: Medical Code(s): R60.0 - Localized edema (4) Ulcer of left lower leg Status: Acute
--- NOTE | 2020-10-04 09:46 | HMH.ACPN ---
Internal Medicine - PN: Subj *Date: 10/04/20 *Time: 09:46 Exam Vital signs and Labs for Last 24 Hours: Temp Pulse Resp BP Pulse Ox 97.8 F 85 16 156/83 H 97 10/04/20 07:41 10/04/20 07:41 10/04/20 07:41 10/04/20 07:41 10/04/20 07:41 Laboratory Results - last 24 hr 10/03/20 09:53: WBC 4.8 D, RBC 4.40 L, Hgb 13.5 L, Hct 39.7 L, MCV 90.2, MCH 30.6, MCHC 33.9, RDW 13.3, Plt Count 291 D, MPV 6.6 L, Neut % (Auto) 61.1, Lymph % (Auto) 25.4, [place] % (Auto) 9.2, Eos % (Auto) 3.3, Baso % (Auto) 1.0, Neut # (Auto) 3.0, Lymph # (Auto) 1.2, [place] # (Auto) 0.4, Eos # (Auto) 0.2, Baso # (Auto) 0.1, ESR 94 H 10/03/20 09:53: Sodium 139, Potassium 3.8, Chloride 99, Carbon Dioxide 34 H, Anion Gap 9.8, BUN 15, Creatinine 1.00, Estimated Creat Clear 142, Estimated GFR 79, Est GFR ( Amer) 96, Glucose 188 H, Calcium 8.9, Total Bilirubin 0.5, AST 55, ALT 47, Alkaline Phosphatase 123, C-Reactive Protein 41.7 H, Total Protein 6.9, Albumin 3.8, Globulin 3.1, Albumin/Globulin Ratio 1.2 10/03/20 12:38: POC Glucose 141 H 10/04/20 06:32: WBC 5.7, RBC 4.15 L, Hgb 12.6 L, Hct 37.3 L, MCV 89.9, MCH 30.2, MCHC 33.7, RDW 13.4, Plt Count 296, MPV 6.4 L, Neut % (Auto) 54.3, Lymph % (Auto) 31.7, [place] % (Auto) 9.6 H, Eos % (Auto) 3.4, Baso % (Auto) 1.0, Neut # (Auto) 3.1, Lymph # (Auto) 1.8, [place] # (Auto) 0.5, Eos # (Auto) 0.2, Baso # (Auto) 0.1 10/04/20 06:32: Sodium 139, Potassium 3.8, Chloride 101, Carbon Dioxide 32 H, Anion Gap 9.8, BUN 12, Creatinine 1.00, Estimated Creat Clear 142, Estimated GFR 79, Est GFR ( Amer) 96, Glucose 153 H, Calcium 8.7 10/04/20 06:32: ESR 94 H I & O for Last 24 hours: Intake & Output 10/01/20 10/02/20 10/03/20 10/04/20 23:59 23:59 23:59 23:59 Intake Total 1430 / 1430 4127 / 4247 2881 / 2881 1255 / 1255 Balance 1430 / 1430 4127 / 4247 2881 / 2881 1255 / 1255 Weight 114.305 kg 113.54 kg 113.54 kg 113.54 kg Microbiology Reports for the Last 24 Hours: Microbiology 10/03/20 13:15 Leg,Left - Wound Gram Stain - Final 10/03/20 13:15 Leg,Left - Wound Wound Culture - Preliminary Gram Positive Cocci Assessment and Plan (1) SIRS (systemic inflammatory response syndrome) Status: Acute Category: Medical Code(s): R65.10 - Systemic inflammatory response syndrome (SIRS) of non-infectious origin without acute organ dysfunction (2) Cellulitis Status: Acute Qualifiers: Site of cellulitis: extremity Site of cellulitis of extremity: lower extremity Laterality: left Qualified Code(s): L03.116 - Cellulitis of left lower limb Category: Medical Code(s): L03.90 - Cellulitis, unspecified (3) Edema of left lower extremity Start date: 09/30/20 Status: Acute Category: Medical Code(s): R60.0 - Localized edema (4) Ulcer of left lower leg Status: Acute Qualifiers: Non-pressure ulcer stage: limited to breakdown of skin Qualified Code(s): L97.921 - Non-pressure chronic ulcer of unspecified part of left lower leg limited to breakdown of skin Category: Medical Code(s): L97.929 - Non-pressure chronic ulcer of unspecified part of left lower leg with unspecified severity (5) Ulcer of left medial lower extremity Start date: 09/30/20 Status: Acute Qualifiers: Non-pressure ulcer stage: limited to breakdown of skin Qualified Code(s): L97.821 - Non-pressure chronic ulcer of other part of left lower leg limited to breakdown of skin Category: Medical Code(s): L97.829 - Non-pressure chronic ulcer of other part of left lower leg with unspecified severity (6) Immunodeficiency Status: Chronic Category: Medical Code(s): D84.9 - Immunodeficiency, unspecified (7) Left leg cellulitis Status: Acute Category: Medical Code(s): L03.116 - Cellulitis of left lower limb (8) Diabetes Status: Acute Category: Medical Code(s): E11.9 - Type 2 diabetes mellitus without complications (9) Obesity (BMI 30-39.9) Status: Acute Ca
--- NOTE | 2020-10-04 10:50 | XR_ITS ---
PROCEDURE: XR CHEST PORTABLE PICC PLAC CLINICAL HISTORY: Confirm PICC line placement COMPARISON: No exams were available for comparison FINDINGS: Left upper extremity PICC line has been inserted. The tip is in good position in the region of the distal SVC. There are mild atelectatic changes in the left lower lobe. The remaining lungs are clear. Unremarkable cardiovascular structures. No acute bony abnormalities. IMPRESSION: Left upper extremity PICC line tip in good position in the SVC region Left lower lobe atelectasis Dictated by: Yamil Gustafson MD 10/04/2020 14:29 Yamil Gustafson MD in OV 10/04/2020 14:29
--- NOTE | 2020-10-04 11:27 | SW/DCPLANNER ---
Addendum entered by Mari Ferreira 10/05/20 09:35: This patient will discharge today and return to [facility] daily for IV antibiotics and dressing changes. Original Note: I spoke with this patient this morning regarding discharge plans. Patient will need two weeks of IV Dapto once a day and daily dressing changes. I informed patient of possible discharge plans: home health, return as an outpatient and placement. Patient has stated that he prefer to return to [facility] outpatient services daily for two weeks for IV antibiotics and dressing changes. Patient will receive a PICC line today and possibly ready for discharge tomorrow pending no setbacks.
[2020-10-04 14:58] VITALS: BP 146/87; PULSE 82; RESP 18; TEMP 36.8; O2SAT 98
[2020-10-04 15:44] LABS: C-Reactive Protein 28.7 mg/L (0-4)
--- NOTE | 2020-10-04 18:16 | PC.NURSE ---
PATIENT HAS DONE WELL THIS SHIFT. TOLERATED DRESSING CHANGE WITH LEANNE WELL. PICC IN CORRECT SPOT AND TOLERATED THIS WELL. HAVE NOT HAD TO REINFORCE LEG DRESSING. HAS BEEN UP IN CHAIR MOST OF DAY. INDEPENDENT IN ROOM. RINGS OUT NEEDED. TOLERATING DIET. NO COMPLAINTS NOTED. VITALS STABLE
[2020-10-04 19:36] VITALS: BP 134/81; PULSE 80; RESP 20; TEMP 37.1; O2SAT 97
[2020-10-05 04:00] VITALS: BP 138/80; PULSE 86; RESP 20; TEMP 36.9; O2SAT 98
[2020-10-05 05:00] VITALS: BMI 34.7
--- NOTE | 2020-10-05 05:34 | PC.NURSE ---
shift summary pt is alert and oriented X4. pts lung sounds are clear with sats maintained 97% or above on room air. there is a dressing on the pts left lower extremity cdi. pt denies any pain, nausea, vomiting, or diarrhea. pt is able to ambulate to restroom unassisted. pt states he is ready to go home. no acute changes will continue to monitor.
[2020-10-05 07:33] LABS: Anion Gap 9.8 mEq/L (5-15); Blood Urea Nitrogen 16 mg/dl (9-20); Calcium 8.9 mg/dl (8.4-10.2); Carbon Dioxide 32 mmol/L (22.0-30.0); Chloride 100 mmol/L (98-107); Creatinine Clearance Estimated 137 mL/min (50-200); Estimated Glomerular Filt Rate 79 ml/min (>60); GFR (African American) 96 ML/MIN (>60); Glucose 152 mg/dl (74-100); Potassium 3.8 mmoL/L (3.5-5.1); Sodium 138 mmol/L (136-145)
[2020-10-05 07:38] VITALS: BP 133/61; PULSE 84; RESP 17; TEMP 36.8; O2SAT 97
[2020-10-05 07:38] LABS: C-Reactive Protein 24.8 mg/L (0-4)
[2020-10-05 07:57] LABS: Basophils # 0.1 K/mm3 (0-0.2); Basophils % 0.9 % (0.1-2.0); Eosinophils # 0.2 K/mm3 (0.0-0.4); Eosinophils % 3.6 % (0.1-12.0); Hematocrit 37.6 % (42.0-52.0); Hemoglobin 13.2 g/dL (14.1-18.0); Lymphocytes # 1.9 K/mm3 (0.7-4.5); Lymphocytes % 30.8 % (10-50); Mean Corpuscular HGB Conc 35.2 g/dL (31.8-35.4); Mean Platelet Volume 7.7 fl (7.4-10.4); Monocytes # 0.5 K/mm3 (0.1-1.0); Monocytes % 7.5 % (1.7-9.3); Neutrophils # 3.6 K/mm3 (1.8-7.8); Neutrophils % 57.3 % (37.0-80.0); Platelet Count 330 K/mm3 (142-424); Red Blood Count 4.28 M/mm3 (4.60-6.20); White Blood Count 6.3 K/mm3 (4.8-10.8)
--- NOTE | 2020-10-05 08:21 | HMH.ORTHPN ---
Subjective Date: 10/05/20 Time: 08: Principal diagnosis: Left leg cellulitis Interval history: Patient resting in chair this morning, seems to be doing very well states minimal pain to left lower extremity. Tolerated breakfast, denies any nausea,vomiting, or shortness of breath. Patient asking when he will be going home. I discussed he should be getting discharged later sometime today. Discussed with him about getting daily IV antibiotic infusions and daily dressing changes while he is at infusion for the next 2 weeks. Patient is in agreement to this treatment plan. PN: Obj Ex Vital signs: Temp Pulse Resp BP Pulse Ox 98.3 F 84 17 133/61 97 10/05/20 07:38 10/05/20 07:38 10/05/20 07:38 10/05/20 07:38 10/05/20 07:38 - Constitutional no acute distress - Routine HEENT Exam Head: Present: normocephalic Eye: Present: EOMI ENT: Present: mucous membranes moist - Routine Neck Exam Present: trachea midline - Routine Respiratory Exam Absent: respiratory distress - Routine Cardiovascular Exam Present: RRR - Routine Abdominal Exam Present: soft - Routine Extremities Exam Present: edema (Left lower extremity edema is improving ), pulses intact, normal capillary refill. Absent: calf tenderness - Detailed Lower Extremity Exam Hip: Left pain with external rotation Leg image: 1 - Left leg cellulitis improved from yesterday. Edema noted, but improving. No purulence, malodor or drainage. Pain 2/10 with palpation of the leg distal anterior medial dye incision. Palpable pedal pulses. No calf or thigh pain noted b/l. - Routine Back/Spine/Pelvis Exam Back/Spine: Present: full ROM - Routine Skin Exam Present: erythema, dry, wounds (left lower extremity S/P I&D 10/03/20) - Routine Neurological Exam Present: alert, oriented X3, normal reflexes, moving all extremities, normal tone, vision grossly intact, hearing grossly intact, normal speech - Routine Psychiatric Exam Present: normal affect, cooperative Progress Note: A&P (1) SIRS (systemic inflammatory response syndrome) Status: Acute (2) Cellulitis Status: Acute (3) Edema of left lower extremity Status: Acute (4) Ulcer of left lower leg Status: Acute (5) Ulcer of left medial lower extremity Status: Acute (6) Immunodeficiency Status: Chronic (7) Left leg cellulitis Status: Acute (8) Diabetes Status: Acute (9) Obesity (BMI 30-39.9) Status: Acute (10) Hypothyroidism Status: Chronic (11) MRSA (methicillin resistant Staphylococcus aureus) infection Status: Acute Assessment and Plan for All Diagnoses:: 10/03/20, S/p 1. Left leg incision and drainage, 2. Left leg deep wound cultures, 3. Left partial delayed primary closure POD #2 Infection markers trending down. Patient reports improvement in pain. Left leg dressing removed. Skin cleansed with saline. Wound flushed with saline. No drainage when the site was compressed. No new purulence noted. The left anterior dye wound post partial DPC was left open yesterday and measured was 3 x 0.1 x 1 cm. Betadine soaked 1/2 packing was inserted into the anterior incision site. A new dressing was then applied over the left leg. Plan: Maintain dressing clean dry and intact to left leg, reinforce as necessary. WBaT. Continue IV antibiotics:Daptomycin per PICC line -Recommend IV Dapto for MRSA x2 weeks (then 2 weeks of oral Doxy vs Bactrim) Patient will need daily dressing changes upon discharge at infusion: -Cleanse the skin and flushed with saline. Dry thoroughly. Apply Betadine soaked half-inch packing into the anterior incision opening followed by Betadine soaked gauze, dry gauze, Kerlix, secure with Bobby. Discuss with PCP team, discharge plan. Stable from Podiatry stand point. Follow up in 1 week.
[2020-10-05 08:45] LABS: Erythrocyte Sedimentation Rate 70 mm/hr (0-15)
--- NOTE | 2020-10-05 09:07 | HMH.DCSUM ---
General - General Admission date:: 09/29/20 Discharge date: 10/05/20 HPI HPI: 50 yr old male presented to ed with c/o of leg swollen and red. Patient states he noticed that his jeans were tight on his lower extremity approximately 2 days ago and then noticed the ulcer to the anterior medial leg had some drainage, erythema and 2+ edema came to the emergency room to be evaluated. Patient denies any fever, nausea, vomiting, diarrhea,or shortness of breath. Pt has a hx of immune deff and takes sq igg therapy, pt states he was dx as a child and since then has not had any infections. Pt admitted due to hx for pod consult and iv antibiotics. Hospital Course Hospital Course: 50 yr old male presented to ed with c/o of leg swollen and red. Patient states he noticed that his jeans were tight on his lower extremity approximately 2 days ago and then noticed the ulcer to the anterior medial leg had some drainage, erythema and 2+ edema came to the emergency room to be evaluated. Patient denies any fever, nausea, vomiting, diarrhea,or shortness of breath. Pt has a hx of immune deff and takes sq igg therapy, pt states he was dx as a child and since then has not had any infections. Pt admitted due to hx for pod consult and iv antibiotics. 09/30/[address]: FINDINGS: Abscess evaluation limited without IV contrast. There is diffuse stranding of the subcutaneous fat throughout the left lower extremity and proximal foot with scattered areas of fluid density in the upper pretibial region, left aspect of the knee anteriorly, anterior aspect of foot, and dorsal proximal calf consistent with edema. No localized fluid collection evident that would indicate an abscess however, small abscess may not be visualized without IV contrast. No evidence of osteomyelitis. No soft tissue gas apparent. IMPRESSION: No obvious abscess. Diffuse stranding of the subcutaneous fat with nonlocalized subcutaneous fluid consistent with cellulitis Dictated by: Yamil Gustafson 10/04/20 CXR: FINDINGS: Left upper extremity PICC line has been inserted. The tip is in good position in the region of the distal SVC. There are mild atelectatic changes in the left lower lobe. The remaining lungs are clear. Unremarkable cardiovascular structures. No acute bony abnormalities. IMPRESSION: Left upper extremity PICC line tip in good position in the SVC region Left lower lobe atelectasis Dictated by: Yamil Gustafson MD 10/03/20 Podiatry performed a Left leg incision and drainage. Podiatry has seen and recommends: Plan: Maintain dressing clean dry and intact to left leg, reinforce as necessary. WBaT. Continue IV antibiotics:Daptomycin per PICC line -Recommend IV Dapto for MRSA x2 weeks (then 2 weeks of oral Doxy vs Bactrim) Patient will need daily dressing changes upon discharge at infusion: -Cleanse the skin and flushed with saline. Dry thoroughly. Apply Betadine soaked half-inch packing into the anterior incision opening followed by Betadine soaked gauze, dry gauze, Kerlix, secure with Bobby. 50 YOM sitting up in chair, reports pain is tolerable, denies any concerns/needs during night. Discussed D/C home today and he is in agreement. LUE PICC Line was placed and verified,he will be receiving IV ATB Wound cultures have grown MRSA PLAN: 1. D/C home today 2. Daily wound change 3. Daily IV ATB 4. F/U PCP 1 week 2. F/U Podiatry 1 week Objective Vital signs: Temp Pulse Resp BP Pulse Ox 98.3 F 84 17 133/61 97 10/05/20 07:38 10/05/20 07:38 10/05/20 07:38 10/05/20 07:38 10/05/20 07:38 no acute distress - *Routine HEENT Exam Head: Present: normocephalic Eye: Present: EOMI ENT: Present: mucous membranes moist - *Routine Neck Exam Present: trachea midline. Absent: tracheal deviation - *Routine Respiratory Exam Present: CTA bilaterally. Absent: accessory muscle use - *Routine Cardiovascular Exam Present: RR
== END 2020-10-05 12:50 | disposition home or self-care (01) | DRG 580 ==
LOC: UTC 16:17 → ER 16:30 → 2ND 18:04
PROVIDERS: Nurse Practitioner; Nurse Practitioner Family; Podiatrist; Admitting Provider Internal Medicine Adolescent Medicine; Emergency Provider Student in an Organized Health Care Education/Training Program; PCP Nurse Practitioner Family; Visit Provider Family Medicine
PROC: 0J9P0ZZ Drainage of Left Lower Leg Subcutaneous Tissue and Fascia, Open Approach (ICD-10-PCS; principal; 2020-10-03 13:00)
DX: L03.116 Cellulitis of left lower limb; L97.821 Non-pressure chronic ulcer of other part of left lower leg limited to breakdown of skin; L97.811 Non-pressure chronic ulcer of other part of right lower leg limited to breakdown of skin; D84.9 Immunodeficiency, unspecified; L03.115 Cellulitis of right lower limb; E78.5 Hyperlipidemia, unspecified; E03.9 Hypothyroidism, unspecified; E66.9 Obesity, unspecified; Z68.35 Body mass index [BMI] 35.0-35.9, adult; I10 Essential (primary) hypertension; F41.9 Anxiety disorder, unspecified; E11.9 Type 2 diabetes mellitus without complications; B95.62 Methicillin resistant Staphylococcus aureus infection as the cause of diseases classified elsewhere
CPT/HCPCS: 11042; 36415; 36569; 71045; 73590; 73700; 73701; 80048; 80053; 80202; 82962; 83036; 83605; 84145; 85025; 85651; 86140; 87040; 87070; 87075; 87077; 87186; 87205; 93971; 96365; 96366; 99284; 99291; C1751; J0878; J2405; J3370; Q9967; U0003

== ENCOUNTER 2020-10-06 10:30 | Outpatient (CLI) | payer MEDICARE, OTHER, SELFPAY ==
[2020-10-06 11:02] VITALS: BP 144/78; PULSE 90; RESP 18; TEMP 36.4; O2SAT 97
[2020-10-06 11:32] VITALS: BP 140/72; PULSE 88; RESP 18; O2SAT 97
[2020-10-06 11:50] VITALS: BP 135/86; PULSE 83; RESP 18; O2SAT 98
== END 2020-10-06 11:50 | disposition home or self-care (01) ==
LOC: INF 10:30
PROVIDERS: Visit Provider Family Medicine
DX: L03.116 Cellulitis of left lower limb (principal); L97.921 Non-pressure chronic ulcer of unspecified part of left lower leg limited to breakdown of skin; A49.02 Methicillin resistant Staphylococcus aureus infection, unspecified site
CPT/HCPCS: 96365; G0463; J0878

== ENCOUNTER 2020-10-07 10:20 | Outpatient (CLI) | payer MEDICARE, OTHER, SELFPAY ==
[2020-10-07 10:32] VITALS: BP 160/75; PULSE 81; RESP 17; TEMP 36.4; O2SAT 97
[2020-10-07 11:39] VITALS: BP 143/76; PULSE 80; RESP 17; O2SAT 98
== END 2020-10-07 11:41 | disposition home or self-care (01) ==
LOC: INF 10:24
PROVIDERS: Visit Provider Family Medicine
DX: L03.116 Cellulitis of left lower limb (principal); L97.921 Non-pressure chronic ulcer of unspecified part of left lower leg limited to breakdown of skin; A49.02 Methicillin resistant Staphylococcus aureus infection, unspecified site
CPT/HCPCS: 96365; G0463; J0878

== ENCOUNTER → 2020-10-08 10:17 | Outpatient (CLI) | payer MEDICARE, OTHER, SELFPAY ==
[2020-10-08 10:42] VITALS: BP 138/70; PULSE 85; RESP 18; TEMP 36.7; O2SAT 97; BMI 36.1
== END ==
PROVIDERS: PCP Emergency Medicine; Visit Provider Family Medicine
DX: L03.116 Cellulitis of left lower limb (principal); L97.921 Non-pressure chronic ulcer of unspecified part of left lower leg limited to breakdown of skin; A49.02 Methicillin resistant Staphylococcus aureus infection, unspecified site
CPT/HCPCS: 96365; J0878

== ENCOUNTER 2020-10-09 10:05 | Outpatient (CLI) | payer MEDICARE, OTHER, SELFPAY ==
[2020-10-09 10:05] VITALS: O2SAT 98
== END 2020-10-09 11:15 | disposition home or self-care (01) ==
LOC: INF 10:07
PROVIDERS: PCP Emergency Medicine; Visit Provider Family Medicine
DX: L03.116 Cellulitis of left lower limb (principal); L97.921 Non-pressure chronic ulcer of unspecified part of left lower leg limited to breakdown of skin; A49.02 Methicillin resistant Staphylococcus aureus infection, unspecified site
CPT/HCPCS: 96365; G0463; J0878

== ENCOUNTER 2020-10-10 10:00 | Outpatient (CLI) | payer MEDICARE, OTHER, SELFPAY ==
[2020-10-10 11:08] VITALS: BP 158/90; BP 169/89; PULSE 88; PULSE 94; RESP 17; TEMP 36.7; O2SAT 97; O2SAT 98
== END 2020-10-10 11:21 | disposition home or self-care (01) ==
LOC: INF 10:08
PROVIDERS: Visit Provider Family Medicine
DX: L03.116 Cellulitis of left lower limb (principal); L97.921 Non-pressure chronic ulcer of unspecified part of left lower leg limited to breakdown of skin; A49.02 Methicillin resistant Staphylococcus aureus infection, unspecified site
CPT/HCPCS: 96365; G0463; J0878

== ENCOUNTER 2020-10-11 10:15 | Outpatient (CLI) | payer MEDICARE, OTHER, SELFPAY ==
[2020-10-11 10:10] VITALS: BP 143/81; PULSE 76; RESP 17; TEMP 36.6; O2SAT 99
[2020-10-11 11:35] VITALS: BP 129/87; PULSE 63; RESP 17; O2SAT 98
== END 2020-10-11 11:37 | disposition home or self-care (01) ==
LOC: INF 10:39
PROVIDERS: Visit Provider Family Medicine
DX: L03.116 Cellulitis of left lower limb (principal); L97.921 Non-pressure chronic ulcer of unspecified part of left lower leg limited to breakdown of skin; A49.02 Methicillin resistant Staphylococcus aureus infection, unspecified site
CPT/HCPCS: 96365; G0463; J0878

== ENCOUNTER 2020-10-12 10:34 | Outpatient (CLI) | payer MEDICARE, OTHER, SELFPAY ==
[2020-10-12 10:35] VITALS: BP 156/94; PULSE 83; RESP 18; O2SAT 98
[2020-10-12 10:41] VITALS: BMI 35.1
[2020-10-12 11:33] VITALS: BP 148/81; PULSE 80; RESP 18
[2020-10-12 11:45] LABS: Basophils # 0.1 K/mm3 (0-0.2); Basophils % 1.1 % (0.1-2.0); Eosinophils # 0.2 K/mm3 (0.0-0.4); Eosinophils % 2.3 % (0.1-12.0); Hematocrit 37.5 % (42.0-52.0); Hemoglobin 13.4 g/dL (14.1-18.0); Lymphocytes # 2.8 K/mm3 (0.7-4.5); Lymphocytes % 39.2 % (10-50); Mean Corpuscular HGB Conc 35.8 g/dL (31.8-35.4); Mean Corpuscular Hemoglobin 31.1 pg (27.0-31.2); Mean Corpuscular Volume 86.9 fl (80-94); Mean Platelet Volume 7.4 fl (7.4-10.4); Monocytes # 0.4 K/mm3 (0.1-1.0); Monocytes % 6.3 % (1.7-9.3); Neutrophils # 3.6 K/mm3 (1.8-7.8); Neutrophils % 51.1 % (37.0-80.0); Platelet Count 354 K/mm3 (142-424); Red Blood Count 4.32 M/mm3 (4.60-6.20); Red Cell Distribution Width 14.3 % (11.5-17.5); White Blood Count 7.1 K/mm3 (4.8-10.8)
[2020-10-12 11:54] LABS: Alanine Aminotransferase 59 U/L (12-78); Albumin Level 4.3 g/dl (3.5-5.0); Albumin/Globulin Ratio 1.5 (1.1-1.8); Alkaline Phosphatase 98 U/L (38-126); Anion Gap 11.7 mEq/L (5-15); Aspartate Amino Transferase 56 U/L (17-59); Bilirubin,Total 0.5 mg/dl (0.2-1.3); Blood Urea Nitrogen 17 mg/dl (9-20); Calcium 8.9 mg/dl (8.4-10.2); Carbon Dioxide 28 mmol/L (22.0-30.0); Chloride 102 mmol/L (98-107); Creatinine Clearance Estimated 119 mL/min (50-200); Estimated Glomerular Filt Rate 64 ml/min (>60); GFR (African American) 78 ML/MIN (>60); Globulin 2.8 g/dL (1.3-3.2); Glucose 93 mg/dl (74-100); Potassium 3.7 mmoL/L (3.5-5.1); Sodium 138 mmol/L (136-145); Total Protein,Serum 7.1 g/dl (6.3-8.2)
[2020-10-12 12:00] LABS: C-Reactive Protein 2.4 mg/L (0-4)
[2020-10-12 12:35] LABS: Erythrocyte Sedimentation Rate 45 mm/hr (0-15)
== END 2020-10-12 11:33 | disposition home or self-care (01) ==
LOC: INF 10:34
PROVIDERS: Podiatrist; Visit Provider Family Medicine
DX: L97.921 Non-pressure chronic ulcer of unspecified part of left lower leg limited to breakdown of skin (principal)
CPT/HCPCS: 80053; 85025; 85651; 86140; 96365; G0463; J0878

== ENCOUNTER 2020-10-13 10:18 | Outpatient (CLI) | payer MEDICARE, OTHER, SELFPAY ==
[2020-10-13 10:21] VITALS: BP 140/76; PULSE 84; RESP 18; TEMP 36.7; O2SAT 99
[2020-10-13 11:12] VITALS: BP 128/76; PULSE 71; RESP 18; O2SAT 99
== END 2020-10-13 11:15 | disposition home or self-care (01) ==
LOC: INF 10:18
PROVIDERS: Visit Provider Family Medicine
DX: L03.116 Cellulitis of left lower limb (principal); L97.921 Non-pressure chronic ulcer of unspecified part of left lower leg limited to breakdown of skin
CPT/HCPCS: 96365; G0463; J0878

== ENCOUNTER 2020-10-14 10:20 | Outpatient (CLI) | payer MEDICARE, OTHER, SELFPAY ==
[2020-10-14 10:40] VITALS: BP 121/70; PULSE 68; RESP 20; TEMP 36.9; O2SAT 95
[2020-10-14 10:50] LABS: Creatine Kinase 176 U/L (55-170)
[2020-10-14 11:20] VITALS: BP 127/78; PULSE 68; RESP 20; TEMP 36.9; O2SAT 95
== END 2020-10-14 11:20 | disposition home or self-care (01) ==
LOC: INF 10:32
PROVIDERS: Visit Provider Family Medicine
DX: L03.116 Cellulitis of left lower limb (principal); L97.921 Non-pressure chronic ulcer of unspecified part of left lower leg limited to breakdown of skin; A49.02 Methicillin resistant Staphylococcus aureus infection, unspecified site
CPT/HCPCS: 82550; 96365; G0463; J0878

== ENCOUNTER 2020-10-15 10:08 | Outpatient (CLI) | payer MEDICARE, OTHER, SELFPAY ==
[2020-10-15 10:23] VITALS: BMI 36.1
[2020-10-15 10:28] VITALS: BP 132/76; PULSE 83; RESP 18; O2SAT 98
== END 2020-10-15 11:11 | disposition home or self-care (01) ==
LOC: INF 10:10
PROVIDERS: PCP Nurse Practitioner Family; Visit Provider Family Medicine
DX: L03.116 Cellulitis of left lower limb (principal); L97.921 Non-pressure chronic ulcer of unspecified part of left lower leg limited to breakdown of skin; A49.02 Methicillin resistant Staphylococcus aureus infection, unspecified site
CPT/HCPCS: 96365; G0463; J0878

== ENCOUNTER 2020-10-16 10:13 | Outpatient (CLI) | payer MEDICARE, OTHER, SELFPAY ==
[2020-10-16 10:22] VITALS: BP 136/77; PULSE 76; RESP 18; O2SAT 98; BMI 36.1
== END 2020-10-16 11:05 | disposition home or self-care (01) ==
PROVIDERS: PCP Nurse Practitioner Family; Visit Provider Family Medicine
DX: L03.116 Cellulitis of left lower limb (principal); L97.921 Non-pressure chronic ulcer of unspecified part of left lower leg limited to breakdown of skin; A49.02 Methicillin resistant Staphylococcus aureus infection, unspecified site
CPT/HCPCS: 96365; G0463; J0878

== ENCOUNTER 2020-10-17 10:30 | Outpatient (CLI) | payer MEDICARE, OTHER, SELFPAY ==
--- NOTE | 2020-10-17 10:30 | PC.NURSE ---
1030-called and left message with mahad hull's construction assistant for order clarification on length of antibiotics. waiting for call back.
[2020-10-17 10:47] VITALS: BP 148/90; PULSE 77; RESP 18; O2SAT 97
[2020-10-17 11:51] VITALS: BP 136/72; PULSE 71; RESP 18
== END 2020-10-17 11:51 | disposition home or self-care (01) ==
LOC: INF 10:35
PROVIDERS: Visit Provider Family Medicine
DX: L03.116 Cellulitis of left lower limb (principal); L97.921 Non-pressure chronic ulcer of unspecified part of left lower leg limited to breakdown of skin; A49.02 Methicillin resistant Staphylococcus aureus infection, unspecified site
CPT/HCPCS: 96365; J0878

== ENCOUNTER 2020-10-18 10:25 | Outpatient (CLI) | payer MEDICARE, OTHER, SELFPAY ==
[2020-10-18 10:37] VITALS: BP 138/74; PULSE 73; RESP 18; TEMP 36.3; O2SAT 96
[2020-10-18 11:45] VITALS: BP 135/72; PULSE 68; RESP 18
== END 2020-10-18 11:45 | disposition home or self-care (01) ==
LOC: INF 10:33
PROVIDERS: Visit Provider Podiatrist
DX: L03.116 Cellulitis of left lower limb (principal); L97.921 Non-pressure chronic ulcer of unspecified part of left lower leg limited to breakdown of skin; A49.02 Methicillin resistant Staphylococcus aureus infection, unspecified site
CPT/HCPCS: 96365; G0463; J0878

== ENCOUNTER 2020-10-19 10:25 | Outpatient (CLI) | payer MEDICARE, OTHER, SELFPAY ==
[2020-10-19 10:29] VITALS: BP 137/76; PULSE 78; RESP 18; TEMP 36.4; O2SAT 97
[2020-10-19 11:00] VITALS: BP 138/71; PULSE 74; RESP 18; O2SAT 97
[2020-10-19 11:30] VITALS: BP 132/80; PULSE 73; RESP 18; O2SAT 98
== END 2020-10-19 11:30 | disposition home or self-care (01) ==
LOC: INF 10:25
PROVIDERS: Visit Provider Podiatrist
DX: L03.116 Cellulitis of left lower limb (principal); L97.921 Non-pressure chronic ulcer of unspecified part of left lower leg limited to breakdown of skin; A49.02 Methicillin resistant Staphylococcus aureus infection, unspecified site
CPT/HCPCS: 96365; G0463; J0878

== ENCOUNTER 2020-10-20 10:00 | Outpatient (CLI) | payer MEDICARE, OTHER, SELFPAY | END 2020-10-20 10:15 | disposition home or self-care (01) | LOC: INF 10:00 | PROVIDERS: Visit Provider Podiatrist | DX: L03.116 Cellulitis of left lower limb (principal); L97.921 Non-pressure chronic ulcer of unspecified part of left lower leg limited to breakdown of skin; A49.02 Methicillin resistant Staphylococcus aureus infection, unspecified site | CPT/HCPCS: G0463 ==

== ENCOUNTER 2020-10-21 10:10 | Outpatient (CLI) | payer MEDICARE, OTHER, SELFPAY ==
[2020-10-21 10:45] VITALS: BP 151/81; PULSE 82; RESP 17; TEMP 36.8; O2SAT 98
== END 2020-10-21 10:48 | disposition home or self-care (01) ==
LOC: INF 10:15
PROVIDERS: Visit Provider Podiatrist
DX: L03.116 Cellulitis of left lower limb (principal); L97.921 Non-pressure chronic ulcer of unspecified part of left lower leg limited to breakdown of skin; A49.02 Methicillin resistant Staphylococcus aureus infection, unspecified site
CPT/HCPCS: G0463

== ENCOUNTER 2020-10-22 10:03 | Outpatient (CLI) | payer MEDICARE, OTHER, SELFPAY ==
[2020-10-22 10:39] VITALS: BP 123/82; PULSE 73; RESP 16; TEMP 36.8; O2SAT 98
[2020-10-22 10:40] VITALS: BP 123/82; PULSE 73; RESP 16; TEMP 36.8; O2SAT 98
== END 2020-10-22 10:40 | disposition home or self-care (01) ==
LOC: INF 10:04
PROVIDERS: PCP Nurse Practitioner Family; Visit Provider Podiatrist
DX: L03.116 Cellulitis of left lower limb (principal); L97.921 Non-pressure chronic ulcer of unspecified part of left lower leg limited to breakdown of skin; A49.02 Methicillin resistant Staphylococcus aureus infection, unspecified site; Z48.01 Encounter for change or removal of surgical wound dressing
CPT/HCPCS: G0463

== ENCOUNTER 2020-10-23 09:47 | Outpatient (CLI) | payer MEDICARE, OTHER, SELFPAY ==
--- NOTE | 2020-10-23 10:29 | PC.NURSE ---
Patient dressing changed. small wound noted to left dye area. scabs noted above and to the sides of the sound. 2 stitches noted to the bottom of the wound. small strip of packing strip soaked in betadine and placed in/on top of wound that is noted to be very shallow. 4x4's soaked in betadine applied to the top of the wound then dry 4x4 kerlix and connie wrap applied. pt tolerated well.
== END 2020-10-23 10:18 | disposition home or self-care (01) ==
LOC: INF 09:48
PROVIDERS: PCP Nurse Practitioner Family; Visit Provider Podiatrist
DX: L03.116 Cellulitis of left lower limb (principal); L97.921 Non-pressure chronic ulcer of unspecified part of left lower leg limited to breakdown of skin; A49.02 Methicillin resistant Staphylococcus aureus infection, unspecified site; Z48.01 Encounter for change or removal of surgical wound dressing
CPT/HCPCS: G0463

== ENCOUNTER 2020-10-27 10:00 | Outpatient (RCR) | payer MEDICARE, OTHER, SELFPAY ==
--- NOTE | 2020-10-24 13:30 | HMH.PTOPWND ---
Rehab Outpt Wound Evaluation Rehab OP Wound Evaluation Start: 10/24/20 13:19 Freq: Status: Active Protocol: Document 10/24/20 13:23 RONAL (Rec: 10/24/20 13:30 PHORNE [id number]) Electronically Signed By Simon Villela, PT 10/24/20 13:23 Subjective/History History History Pt is 50 yowm who presents ~ 3 wks S/P L Lower leg I&D for infected open wound. He reports minimal discomfort at this time, it just itches real bad. He reports continued swelling, but this is also decreased. He has been getting IV abx via infusion with daily dressing changes. He has PMH of DM-II. Subjective Subjective Pt with no c/o pain this date. Wound Eval Wound Left Medial [place] Wound Type Incision Is This a Chronic Wound Yes Wound Length (cm) 3.3 Wound Width (cm) 0.9 Wound Bed Appearance [place],Yellow Percentage Granulated (%) 70 Percentage of Slough (%) 30 Wound Margins Description Well Defined Tunneling Position 12 o'clock Tunneling Depth (cm) 0.5 Surrounding Tissue Appearance [place] Edema Type Pitting Edema Degree 2+ Query Text:1+ Trace, Barely Detectable, Rebound 15-30 seconds 2+ Moderate, Slight Indentation, Rebound 10-20 seconds 3+ Deep, Deeper Indentation, Rebound > 30 seconds 4+ Very Deep, Rebound > 60 seconds Edema Appearance Puffy Drainage Description Serosanguineous Drainage Amount Small Drainage Odor No Odor Wound Topical Solution/Irrigant Saline Irrigant Primary Dressing Medicated Gauze Pad Comment betadine, petroleum gauze Wound Secondary Dressing Type Composite Comment optifoam gentle border Wound Debridement Method Forceps,Gauze Wound Debridement Amount of Tissue Minimal Removed Dressing Change Patient Tolerance Tolerated Well Wound Problems/Impairments Impairments Problems/Impairmments Palpation Tenderness,Increased Edema,Wound Care Needs, Subjective C/O Pain,Impaired Self Care/Self Management Prognosis Rehab Potential Good Clinical Impression Consistent with Diagnosis Yes Short Term Goals Number of Weeks 4 Decrease Edema Ye
== END 2020-10-27 10:05 | disposition home or self-care (01) ==
LOC: PT 10:00
PROVIDERS: PCP Nurse Practitioner Family; Visit Provider Podiatrist
DX: Z98.890 Other specified postprocedural states (principal); L97.929 Non-pressure chronic ulcer of unspecified part of left lower leg with unspecified severity; A49.02 Methicillin resistant Staphylococcus aureus infection, unspecified site
CPT/HCPCS: 97162; 97597

== ENCOUNTER 2020-10-31 10:55 | Outpatient (CLI) | payer MEDICARE, OTHER, SELFPAY ==
[2020-10-31 11:20] VITALS: BP 141/71; PULSE 77; RESP 18; O2SAT 96
[2020-10-31 11:23] LABS: Basophils # 0.1 K/mm3 (0-0.2); Basophils % 2.5 % (0.1-2.0); Eosinophils # 0.2 K/mm3 (0.0-0.4); Eosinophils % 3.2 % (0.1-12.0); Hemoglobin 14.6 g/dL (14.1-18.0); Lymphocytes # 2.9 K/mm3 (0.7-4.5); Lymphocytes % 57.5 % (10-50); Mean Corpuscular HGB Conc 34.7 g/dL (31.8-35.4); Mean Corpuscular Hemoglobin 30.7 pg (27.0-31.2); Mean Corpuscular Volume 88.5 fl (80-94); Mean Platelet Volume 7.7 fl (7.4-10.4); Monocytes # 0.3 K/mm3 (0.1-1.0); Monocytes % 5.4 % (1.7-9.3); Neutrophils # 1.6 K/mm3 (1.8-7.8); Neutrophils % 31.4 % (37.0-80.0); Platelet Count 210 K/mm3 (142-424); Red Blood Count 4.75 M/mm3 (4.60-6.20)
[2020-10-31 11:31] LABS: MANUAL DIFFERENTIAL MANUAL DIFFERENTIAL (MANUAL DIFF)
[2020-10-31 12:31] LABS: Alanine Aminotransferase 56 U/L (12-78); Albumin Level 4.9 g/dl (3.5-5.0); Albumin/Globulin Ratio 1.8 (1.1-1.8); Alkaline Phosphatase 63 U/L (38-126); Anion Gap 13.1 mEq/L (5-15); Aspartate Amino Transferase 60 U/L (17-59); Bilirubin,Total 0.9 mg/dl (0.2-1.3); Blood Urea Nitrogen 20 mg/dl (9-20); Calcium 9.3 mg/dl (8.4-10.2); Carbon Dioxide 29 mmol/L (22.0-30.0); Chloride 99 mmol/L (98-107); Estimated Glomerular Filt Rate 71 ml/min (>60); GFR (African American) 86 ML/MIN (>60); Globulin 2.7 g/dL (1.3-3.2); Glucose 152 mg/dl (74-100); Potassium 4.1 mmoL/L (3.5-5.1); Sodium 137 mmol/L (136-145); Total Protein,Serum 7.6 g/dl (6.3-8.2)
[2020-10-31 12:36] LABS: C-Reactive Protein 0.6 mg/L (0-4)
[2020-10-31 14:11] LABS: Erythrocyte Sedimentation Rate 11 mm/hr (0-15)
[2020-10-31 18:56] LABS: Eosinophils % 2 % (0-3); Lymphocytes % 68 % (10-50); Monocytes % 8 % (2-9); Neutrophils % 22 % (42-76); Total Cells Counted 100
[2020-10-31 18:57] LABS: Platelet Estimate Normal; RBC Morphology Normal
== END 2020-10-31 11:15 | disposition home or self-care (01) ==
LOC: LAB 10:56
PROVIDERS: Visit Provider Podiatrist
DX: Z98.890 Other specified postprocedural states (principal); L03.116 Cellulitis of left lower limb; L97.921 Non-pressure chronic ulcer of unspecified part of left lower leg limited to breakdown of skin; Z11.52 Encounter for screening for COVID-19
CPT/HCPCS: 80053; 85007; 85025; 85651; 86140; G0463; U0003

== ENCOUNTER 2020-11-02 09:16 | Day surgery (SDC) | payer MEDICARE, OTHER, SELFPAY ==
[2020-11-01 08:40] VITALS: BMI 34.1
[2020-11-02 09:33] VITALS: BP 143/80; PULSE 110; RESP 18; TEMP 36.9; O2SAT 99
[2020-11-02 09:47] LABS: POC Glucose,Bedside 145 (70-110)
[2020-11-02 10:25] VITALS: BP 134/64; PULSE 93; RESP 18; TEMP 36.9; O2SAT 98
--- NOTE | 2020-11-02 10:36 | HMH.OPNOTE ---
Date of procedure: 11/02/20 Pre-op Diagnosis:: 1. Left anterior leg ulcer 2. History of left abscess, s/p I&D 10/03/20 Post-op Diagnosis:: Same Procedure performed:: 1. Left leg wound debridement 2. Left delayed primary closure Surgeon:: Teresita Esipnosa DPM Anesthesia: none Estimated blood loss (mL): 2 Clinical Note:: Patient is a newly diagnosed diabetic male who was hospitalized at [facility] last month. He underwent a left leg incision and drainage for an abscess 10/03/2020. He has been compliant with postoperative protocol including daptomycin per PICC line (10/04-10/19/20) and 2 weeks of oral Doxy (10/19-11/02/20). Plan today for wound closure to abscess I&D site. All risks and benefits were discussed including but not limited to: damage to blood vessels and nerves, bleeding, infection, wound complications, need for further surgery, implant/graft failure, need for removal of implant/graft, allergic reaction, prolonged or permanent swelling of the extremity, prolonged or permanent pain or deformity, CRPS/RSD, DVT/PE, and anesthetic complications including . Patient understands if wound/graft gets infected, it could lead to prolonged oral or IV antibiotics or increased risk of osteomyelitis, which could lead to possible loss of digits, partial foot or even BKA. No guarantees were given. All questions fully answered. The patient verbalized understanding and agreed to proceed with surgery. Consent was obtained. Saw PCP, Jose Baptiste 10/28/20. Operative findings:: Left anterior leg ulcer. Per debridement no new signs of infection noted. Post debridement sharply excisionally with a 15 blade, forceps and curettes wound extended through skin into/involving subcutaneous tissue. Wound measured 1.1 x 0.2 x 0.2 cm. Wound edges fully reapproximated with the delayed primary closure. Operative note:: On this date and time patient was deemed an appropriate surgical candidate. With informed consent signed, the patient was taken to the local procedure operating theater room. The patient was positioned supine. No anesthesia was induced. No tourniquet used. Left leg wound debridement: The left extremity was prepped and draped in normal sterile fashion. Attention was directed to the anterior aspect of the left leg where an ulcer was noted. Preop the ulcer was crusted and scabbed over with fibrotic slough. A sharp curette, 15 blade and forceps used to sharply excisionally debride the ulcer through skin into subcutaneous tissue. It did not extend deep through into deep fascia or to the tibia. Post debridement, healthy bleeding in the wound base was 100% granular. Post: Ulcer measured 1.1 x 0.2 x 0.2 cm. The wound site was flushed with bacitracin irrigation. Left foot delayed priamry closure: No purulence or signs of infection noted. 2-0 Prolene was used to close skin in an interrupted simple suture fashion. Skin edges were fully reapproximated. The skin was cleansed. Betadine soaked gauze, dry sterile dressing applied to the left foot. The patient tolerated the procedure well, without complications. Materials: 2-0 Prolene Discharge/Plan: Ok to discharge home when ready and vss. Patient is to maintain dressing clean dry and intact. Patient given specific instructions on daily dressing changes with Betadine dry dressing. WB to LLE. Finish Doxycycline. IM Rocephin 1g given today. Follow up with Podiatry in 1-2 weeks as scheduled. Condition: stable Disposition: same day Complications:: None
[2020-11-02 10:55] VITALS: BP 130/75; PULSE 84; RESP 18; O2SAT 97
== END 2020-11-02 10:55 | disposition home or self-care (01) ==
LOC: OUTP 09:17
PROVIDERS: PCP Nurse Practitioner Family; Visit Provider Podiatrist
DX: L97.921 Non-pressure chronic ulcer of unspecified part of left lower leg limited to breakdown of skin (principal); L03.116 Cellulitis of left lower limb; I10 Essential (primary) hypertension; E03.9 Hypothyroidism, unspecified; E11.65 Type 2 diabetes mellitus with hyperglycemia; E78.5 Hyperlipidemia, unspecified; Z79.899 Other long term (current) drug therapy; A49.02 Methicillin resistant Staphylococcus aureus infection, unspecified site
CPT/HCPCS: 11042; 82962

== ENCOUNTER 2021-01-27 10:00 | Outpatient (RCR) | payer MEDICARE, OTHER, SELFPAY ==
--- NOTE | 2021-01-03 14:36 | HMH.PTOPWND ---
Rehab Outpt Wound Evaluation Rehab OP Wound Evaluation Start: 01/03/21 13:57 Freq: Status: Active Protocol: Document 01/03/21 14:15 PHOCHIQUIS (Rec: 01/03/21 14:36 PHORNE [id number]) Electronically Signed By Simon Villela, PT 01/03/21 14:15 Subjective/History History History Pt is 50 yowm who presents with c/o L LE edema x ~ 3 mos after bout of cellulitis requiring surgery. Pt had MRSA infection requiring I&D and outpatient wound care. He then had delayed primary closure performed 11/02/20. His wound is now healed and he presents with pitting edema to the L calf. PMH: DM-II, HTN, HL, anxiety. Subjective Subjective Pt reports no c/o pain at this time, no tenderness to palpation noted. 2+ and fibrotic edema throughout L calf. Lymphedema Eval Classification of Lymphedema Secondary Lymphedema Yes Stemmer's sign Stemmer's Sign no Stage of Lymphedema Lymphedema stages Stage II (Pitting edema, increased fibrosis w/ decreased pitting) Skin Changes Dry Skin Yes Redness Yes Other Changes Yes Pain Scale Pain Scale (0-10) 0 Affected Extremities Areas Affected by Lymphedema/Edema Left Lower Extremity Manual Lymphatic Drainage Treatment Area MLD Treatment Area Left Lower Extremity Wound Problems/Impairments Impairments Problems/Impairmments Impaired Walking,Impaired Standing,Increased Edema, Lymphedema Present,Impaired Self Care/Self Management Prognosis Rehab Potential Good Clinical Impression Consistent with Diagnosis Yes Short Term Goals Number of Weeks 4 Decrease Edema Yes Patient to Understand Lymphedema Yes Treatment and Exercises M[facility] Goals Number of Weeks 8 Decrease Lymphedema Yes Patient to be Ind w/ HEP Yes Patient to be Ind w/ Donning/[place] Yes Compression Garments Patient to Adhere Lymphedema Precautions Yes Outpatient Therapy Plan of Care Treatment Plan May Include Therapeutic Exercise Including Home Yes Exercise Program Manual Therapy Techniques Yes Neuromuscular Re-education
== END 2021-01-27 10:05 | disposition home or self-care (01) ==
LOC: PT 10:00
PROVIDERS: PCP Nurse Practitioner Family; Visit Provider Podiatrist
DX: I89.0 Lymphedema, not elsewhere classified (principal)
CPT/HCPCS: 97140; 97162; 97760

== ENCOUNTER → 2022-07-09 11:45 | Outpatient (CLI) | payer MEDICARE, OTHER, SELFPAY ==
[2022-07-09 15:25] LABS: Basophils # 0.1 K/mm3 (0-0.2); Basophils % 1.1 % (0.1-2.0); Eosinophils # 0.2 K/mm3 (0.0-0.4); Eosinophils % 3.8 % (0.1-12.0); Hematocrit 45.9 % (42.0-52.0); Hemoglobin 15.7 g/dL (14.1-18.0); Lymphocytes # 2.3 K/mm3 (0.7-4.5); Lymphocytes % 45.2 % (10-50); Mean Corpuscular HGB Conc 34.1 g/dL (31.8-35.4); Mean Corpuscular Hemoglobin 31.2 pg (27.0-31.2); Mean Corpuscular Volume 91.5 fl (80-94); Mean Platelet Volume 7.9 fl (7.4-10.4); Monocytes # 0.4 K/mm3 (0.1-1.0); Monocytes % 7.4 % (1.7-9.3); Neutrophils # 2.2 K/mm3 (1.8-7.8); Neutrophils % 42.5 % (37.0-80.0); Platelet Count 229 K/mm3 (142-424); Red Blood Count 5.02 M/mm3 (4.60-6.20); Red Cell Distribution Width 14.4 % (11.5-17.5); White Blood Count 5.1 K/mm3 (4.8-10.8)
[2022-07-09 16:13] LABS: Alanine Aminotransferase 56 U/L (12-78); Albumin Level 4.3 g/dl (3.5-5.0); Albumin/Globulin Ratio 1.8 (1.1-1.8); Alkaline Phosphatase 94 U/L (38-126); Anion Gap 10.5 mEq/L (5-15); Aspartate Amino Transferase 56 U/L (17-59); Bilirubin,Total 0.6 mg/dl (0.2-1.3); Blood Urea Nitrogen 14 mg/dl (9-20); Calcium 8.9 mg/dl (8.4-10.2); Carbon Dioxide 29 mmol/L (22.0-30.0); Chloride 98 mmol/L (98-107); Chol/HDL Ratio 8.4 (1-3.5); Cholesterol 211 mg/dl (140-200); Estimated Glomerular Filt Rate 79 ml/min (>60); GFR (African American) 95 ML/MIN (>60); Globulin 2.4 g/dL (1.3-3.2); Glucose 130 mg/dl (74-100); HDL Cholesterol 25 mg/dl (40-60); Potassium 3.5 mmoL/L (3.5-5.1); Sodium 134 mmol/L (136-145); Total Protein,Serum 6.7 g/dl (6.3-8.2); Triglycerides 383 mg/dl (30-150); VLDL Cholesterol 77 mg/dL (0-40)
[2022-07-09 16:26] LABS: Direct LDL Cholesterol 124.63 mg/dL (100-129)
[2022-07-09 16:29] LABS: 25-OH Vitamin D, Total < 12.8 ng/mL (30-100); Free T4 (Free Thyroxine) 1.37 ng/dl (0.78-2.19)
[2022-07-09 16:46] LABS: Prostate Specific Ag Screen 0.8 ng/ml (0.0-4.0); Thyroid Stimulating Hormone 1.64 uIU/mL (0.465-4.68)
== END ==
PROVIDERS: PCP Emergency Medicine; Visit Provider Emergency Medicine
DX: E11.65 Type 2 diabetes mellitus with hyperglycemia (principal); E55.9 Vitamin D deficiency, unspecified; Z12.5 Encounter for screening for malignant neoplasm of prostate; Z79.899 Other long term (current) drug therapy
CPT/HCPCS: 80053; 80061; 82306; 84439; 84443; 85025; G0103

== ENCOUNTER 2023-07-30 13:55 | Outpatient (CLI) | payer MEDICARE, OTHER, SELFPAY ==
[2023-07-30 18:49] LABS: Basophils # 0.1 K/mm3 (0-0.2); Eosinophils # 0.2 K/mm3 (0.0-0.4); Eosinophils % 2.3 % (0.1-12.0); Hematocrit 44.8 % (42.0-52.0); Hemoglobin 15.3 g/dL (14.1-18.0); Lymphocytes # 5.5 K/mm3 (0.7-4.5); Lymphocytes % 53.3 % (10-50); Mean Corpuscular Hemoglobin 31.6 pg (27.0-31.2); Mean Platelet Volume 8.3 fl (7.4-10.4); Monocytes # 0.8 K/mm3 (0.1-1.0); Monocytes % 7.9 % (1.7-9.3); Neutrophils # 3.7 K/mm3 (1.8-7.8); Neutrophils % 35.5 % (37.0-80.0); Platelet Count 266 K/mm3 (142-424); Red Blood Count 4.82 M/mm3 (4.60-6.20); White Blood Count 10.3 K/mm3 (4.8-10.8)
[2023-07-30 18:51] LABS: MANUAL DIFFERENTIAL MANUAL DIFFERENTIAL (MANUAL DIFF)
[2023-07-30 19:15] LABS: Alanine Aminotransferase 58 U/L (12-78); Albumin Level 4.7 g/dl (3.5-5.0); Alkaline Phosphatase 85 U/L (38-126); Anion Gap 13.6 mEq/L (5-15); Aspartate Amino Transferase 56 U/L (17-59); Bilirubin,Total 0.8 mg/dl (0.2-1.3); Blood Urea Nitrogen 13 mg/dl (9-20); Calcium 9.6 mg/dl (8.4-10.2); Carbon Dioxide 28 mmol/L (22.0-30.0); Chloride 103 mmol/L (98-107); Chol/HDL Ratio 5.5 (1-3.5); Cholesterol 191 mg/dl (140-200); Estimated Glomerular Filt Rate 78 ml/min (>60); GFR (African American) 95 ML/MIN (>60); Globulin 2.4 g/dL (1.3-3.2); Glucose 77 mg/dl (74-100); HDL Cholesterol 35 mg/dl (40-60); Potassium 3.6 mmoL/L (3.5-5.1); Sodium 141 mmol/L (136-145); Total Protein,Serum 7.1 g/dl (6.3-8.2); Triglycerides 366 mg/dl (30-150); VLDL Cholesterol 73 mg/dL (0-40)
[2023-07-30 19:27] LABS: Direct LDL Cholesterol 110.53 mg/dL (100-129)
[2023-07-30 19:41] LABS: 25-OH Vitamin D, Total 47.2 ng/mL (30-100)
[2023-07-30 19:46] LABS: Eosinophils % 2 % (0-3); Lymphocytes % 59 % (10-50); Monocytes % 4 % (2-9); Neutrophils % 33 % (42-76); Platelet Estimate Normal; RBC Morphology Normal; Total Cells Counted 100
[2023-07-30 19:50] LABS: Prostate Specific Ag Screen 0.9 ng/ml (0.0-4.0); Thyroid Stimulating Hormone 2.95 uIU/mL (0.465-4.68)
== END 2023-07-30 23:59 | disposition home or self-care (01) ==
LOC: LAB.DROPOF 07-31 14:14
PROVIDERS: PCP Nurse Practitioner Family; Visit Provider Nurse Practitioner Family
DX: E55.9 Vitamin D deficiency, unspecified (principal); E11.65 Type 2 diabetes mellitus with hyperglycemia; E78.5 Hyperlipidemia, unspecified; R53.83 Other fatigue; Z12.5 Encounter for screening for malignant neoplasm of prostate
CPT/HCPCS: 80053; 80061; 82306; 83036; 84443; 85007; 85025; G0103

== ENCOUNTER 2025-02-17 14:17 | Outpatient (CLI) | payer MEDICARE, OTHER, SELFPAY ==
[2025-02-17 19:16] LABS: Hematocrit 43.2 % (42.0-52.0); Hemoglobin 14.8 g/dL (14.1-18.0); Immature Granulocytes % 0 %; Mean Corpuscular HGB Conc 34.3 g/dL (31.8-35.4); Mean Corpuscular Hemoglobin 30.8 pg (27.0-31.2); Mean Corpuscular Volume 89.8 fl (80-94); Nucleated Red Blood Cells % 0 %; Platelet Count 273 K/mm3 (142-424); Red Blood Count 4.81 M/mm3 (4.60-6.20); Red Cell Distribution Width-SD 42.8 fL; White Blood Count 5.5 K/mm3 (4.8-10.8)
[2025-02-17 19:35] LABS: Hemoglobin A1C 6.2 % (4.0-6.0)
[2025-02-17 19:41] LABS: Alanine Aminotransferase 44 U/L (12-78); Albumin Level 4.7 g/dl (3.5-5.0); Albumin/Globulin Ratio 1.9 (1.1-1.8); Alkaline Phosphatase 73 U/L (38-126); Anion Gap 11.9 mEq/L (5-15); Aspartate Amino Transferase 45 U/L (17-59); Bilirubin,Total 0.5 mg/dl (0.2-1.3); Blood Urea Nitrogen 18 mg/dl (9-20); Calcium 9.9 mg/dl (8.4-10.2); Carbon Dioxide 28 mmol/L (22.0-30.0); Chloride 95 mmol/L (98-107); Cholesterol 243 mg/dl (140-200); Creatinine,Serum 1.10 mg/dl (0.66-1.25); Estimated Glomerular Filt Rate 70 ml/min (>60); GFR (African American) 84 ML/MIN (>60); Globulin 2.5 g/dL (1.3-3.2); Glucose 90 mg/dl (74-100); HDL Cholesterol 24 mg/dl (40-60); Potassium 3.9 mmoL/L (3.5-5.1); Sodium 131 mmol/L (136-145); Total Protein,Serum 7.2 g/dl (6.3-8.2)
[2025-02-17 19:42] LABS: Triglycerides 445 mg/dl (30-150)
[2025-02-17 20:10] LABS: Thyroid Stimulating Hormone 1.17 uIU/mL (0.465-4.68)
--- OUTSIDE RECORDS SUMMARY | 2025-02-18 11:26 | XMS_ITS | Clinical Summary ---
Author Organization Healthcare Address [address] [place] [address] Care Team Providers Care Air Support Control Officer Name Role Phone Jose Baptiste APRN Primary Care Provider [phone] Allergies Active Allergy Reactions Criticality Noted Date Comments Diphenhydramine Unknown - Patient st ates they do not know rxn details Low 01/09/2017 Medications atorvastatin (Lipitor) 40 MG tablet Take 1 tablet (40 mg) by mouth 1 (one) time each day. 02/21/20 21 Active calcium carbonate 1500 (600 Ca) MG tablet Take 1 tablet (1,500 mg) by mouth 1 (one) time each day. 01/16/20 18 Active fenofibrate (Tricor) 145 MG tablet Take 1 tablet (145 mg) by mouth 1 (one) time each day. 02/21/20 21 Active levothyroxine (Synthroid, Levoxyl) 25 MCG tablet Take 1 tablet (25 mcg) by mouth 1 (one) time each day. 02/21/20 21 Active triamterene-hydr ochlorothiazide (Maxzide) 75-50 MG tablet Take 1 tablet by mouth 1 (one) time each day. 02/21/20 21 Active atorvastatin (Lipitor) 40 MG tablet Take 1 tablet (40 mg) by mouth 1 (one) time each day. 01/10/20 17 Active Cod Liver Oil capsule 01/16/20 18 Active EPINEPHrine (Epipen) 0.3 MG/0.3ML injection syringe 11/07/19 22 Active fenofibrate (Tricor) 145 MG tablet Take 1 tablet (145 mg) by mouth 1 (one) time each day. 01/16/20 18 Active levothyroxine (Synthroid, Levoxyl) 25 MCG tablet Take 1 tablet (25 mcg) by mouth 1 (one) time each day. 07/10/19 19 Active immune globulin, human, (Hizentra) subcutaneous infusion Inject 100 mL (20,000 mg) under the skin 1 (one) time per week. 400 mL 24 10/27/19 23 Active GNP Vitamin D3 Extra Strength 25 MCG (1000 UT) tablet 02/29/20 23 Active Vitamin D3 1.25 MG (89234 UT) capsule 02/29/20 23 Active metFORMIN XR (Glucophage-XR) 500 MG 24 hr tablet 02/16/20 23 Active fluticasone (Flonase) 50 MCG/ACT nasal sprayIndications :CVID (common variable immunodeficiency ),Allergic rhinitis, unspecified seasonality, unspecified trigger USE 2 SPRAYS IN EACH NOSTRIL 2 TIMES A DAY FOR 2 WEEKS THEN USE 1 SPRAY 2 TIMES A DAY FOR 2 TO 3 MONTHS 16 g 10/02/19 24 Active lisinopril 10 MG tablet 03/02/20 24 Active Hizentra 10 GM/50ML solution prefilled syringe INFUSE 20GM (100ML) SUBCUTANEOUSLY EVERY WEEK. MAX INFUSION RATE UP TO 15-25ML PER HR PER INJECTION SITE OR INSTRUCTED BY PRESCRIBER. 400 mL 6 05/07/19 25 Active Active Problems Problem Noted Date Diagnosed Date CVID (common variable immunodeficiency) 03/15/20 22 Acute frontal sinusitis 03/15/2022 Resolved Problems Problem Noted Date Diagnosed Date Resolved Date Anxiety 03/24/2024 03/24/2024 Cardiac murmur 03/24/2024 03/24/2024 Diabetes 03/24/2024 03/24/2024 Edema of left lower extremity 03/24/2024 03/24/2024 Hyperlipidemia 03/24/2024 03/24/2024 Hypertension 03/24/2024 03/24/2024 Hypothyroidism 03/24/2024 03/24/2024 Sepsis 03/24/2024 03/24/2024 MRSA (methicillin resistant Staphylococcus aureus) infection 03/24/2024 03/24/2024 Obesity (BMI 30-39.9) 03/24/20242023 SIRS (systemic inflammatory response syndrome) 03/24/2024 03/24/2024 Cellulitis 03/24/2024 03/24/2024 Sinusitis 03/24/2024 03/24/2024 Vitamin D deficiency 03/24/2024 024 Ulcer of left lower leg 03/24/202403/02 Left leg cellulitis 03/24/2024 03/24/20 Immunologic deficiency syndrome 01/09/2017 03/24/2024 Pure hyperglyceridemia 07/14/201203/24 Pure hypercholesterolemia 07/14/2012 Immunizations Immunization Administration Dates Next Due Influenza, injectable, quadrivalent 01/24/2017 Influenza, injectable, quadrivalent, preservativ e free 01/24/2017 Pneumococcal Conjugate PCV 13 01/24/2017 Pneumococcal Polysaccharide PPV23 01/24/2017 Family History Medical History Relation Name Comments Heart Problem Other Relation Name Status Comments Other Social History Tobacco Use Types Packs/Day Years Used Date Smoking Tobacco: Never Passive Smoke Exposure: Never Smokeless Tobacco: Never Tobacco Cessation:Counseling Given: Not Answered Alcohol Use Standard Drinks/Week Comments Not Currently 0 (1 standard drink = 0.6 oz pur e alcohol) PHQ-2 Answer Date Recorded Patient Health Questionnaire-2 Score 0 03/24/2024 PHQ-2A Answer Date Recorded Patient Health Questionnaire-2 Score 0 03/07/2022 Sex and Gender Information Value Date Recorded Sex Assigned at Not on file Legal Sex Male 8:50 PM EDT Gender Identity Not on file Sexual Orientation Not on file Last Filed Vital Signs Vital Sign Reading Time Taken Comments Blood Pressure 123/79 03/24/2024 12:47 PM EST Pulse 97 03/24/2024 12:47 PM EST Temperature 36.9 C (98.4 F) 03/13/2023 1:46 PM EST Respiratory Rate 16 03/13/2023 1:46 PM EST Oxygen Saturation 98% 03/24/2024 12:47 PM EST ra Inhaled Oxygen Concentration - - Weight 118 kg (260 lb 9.3 oz) 03/24/2024 12:47 P M EST Height 177.8 cm (5' 10 ) 03/24/2024 12:47 PM EST Body Mass Index 37.39 03/24/2024 12:47 PM EST Plan of Treatment Upcoming Encounters Date Type Department Care Team (Late st Contact Info) Description 04/13/2025 11:00 AM EST Office Visit [facility] [address] [place] [address] Sid Sams MD [address] [place] [address] Health Maintenance Due Date Last Done Comments [facility]-HIV Screening 1970 [facility]-Hepatitis C Screening 1970 [facility]-Medicare Annual Wellness (AWV) 1970 [facility]-/Child/Adol SDOH Screenings 1970 [id number] Vaccine (#1) 07/19/1975 [facility]- SDOH Screenings 1988 [facility]-Adult SDOH Screenings 1988 [facility]-DTaP,Tdap,and Td Vaccines (1 - Tdap) 1989 [facility]-Hepatitis B Vaccines (1 of 3 - 19+ 3-dose series) 1989 [facility]-Zoster Vaccines (1 of 2) 1989 CT Colonography 07/19/2015 Colonoscopy 07/19/2015 [facility]-DNA 07/19/2015 FIT 07/19/2015 FOBT 07/19/2015 Sigmoidoscopy 07/19/2015 [facility]-Colorectal Cancer Screening 07/19/2015 [facility]-Pneumococcal Vaccine: 50+ Years (3 of 3 - PCV20 or PCV21) 01/24/2022 01/24/2017, 01/24/2017 [facility]-Influenza Vaccine (#1) 2024 01/24/2017, [facility]-Depression Screening 03/24/2025 03/24/2024 [facility]-Diabetes: Hemoglobin A1C Discontinued 03/13/2023 [facility]-Obesity Intervention Completed 024, 03/13/2023, 03/07/2022, Additional history exists HPV Vaccines Aged Out No longer eligi ble based on patient's age to complete this topic [facility]-HIB Vaccines Aged Out No longer e ligible based on patient's age to complete this topic [facility]-Hepatitis A Vaccines Aged Out No longer eligible based on patient's age to complete this topic [facility]-IPV Vaccines Aged Out No longer e ligible based on patient's age to complete this topic [facility]-Rotavirus Vaccines Aged Out No lo nger eligible based on patient's age to complete this topic Procedures Procedure Name Priority Date/Time Associated Diagnosis Comments HEMOGLOBIN A1C Routine 03/13/2023 2:52 PM EST Diabetes mellitus due to underlying condition without complication, without long-term current use of insulin ([facility]) from Last 3 Months or Most Recently Relevant to Health Maintenance Results * Hemoglobin A1c (03/13/2023 2:52 PM EST) Hemoglobin A1c 5.3 <5.7 % 03/13/2023 5:33 PM EST [facility] Blood Venous blood specimen / Unknown Venipuncture / Unknown 03/13/2023 2:52 PM EST 03/13/2023 2:54 PM EST Narrative [facility] - 03/13/2023 5:33 PM EST HA1C Interpretive Data: Diagnosis of Diabetes: Diabetic > or = 6.5% Pre-diabetic 5.7 to 6.4% Non-diabetic < or = 5.6% Glycemic Targets for Type I and Type II Diabetics: Non- Adults <7.0% Adults <6.0% Children and Adolescents <7.5% Source: [place] [employer]. Standards of medical care in diabetes,2017. Diabetes Care.2017:40 (suppl 1):S1-S135. HbA1c assay performed by an ion-exchange chromatography method that is certified traceable to the DCCT. Sid Sams MD LAB BLOOD ORDERABLES Final Res ult [facility] [address] [place] [address] from Last 3 Months or Most Recently Relevant to Health Maintenance Additional Health Concerns Infection Onset Date Last Indicated MRSA 03/24/2024 03/24/2024 Insurance [employer] [facility] [place] [address] Care Teams Air Support Control Officer Relationship Specialty Start Date End Date Jose Baptiste APRN [address] [place] [address] PCP - General 08/12/20
== END 2025-02-17 23:59 ==
LOC: LAB.DROPOF 02-18 10:36
PROVIDERS: PCP Nurse Practitioner Family; Visit Provider Nurse Practitioner Family
DX: E03.9 Hypothyroidism, unspecified (principal); I10 Essential (primary) hypertension; Z12.5 Encounter for screening for malignant neoplasm of prostate; E11.65 Type 2 diabetes mellitus with hyperglycemia
CPT/HCPCS: 80053; 80061; 83036; 84443; 85025; G0103